=== PATIENT | female | born 1980 | race Caucasian/White ===

== ENCOUNTER 2016-09-05 21:41 | Emergency (ER) | payer OTHER ==
[~2016-09-05] VITALS: Ht 165.1 cm; Wt 78.9 kg
[~2016-09-05 21:41] MED LIST: FERR1TAB23; FRRS300 PO; MTR600X PO; PREN1TAB29 PO; TYL325X PO
[2016-09-05 21:44] VITALS: Ht 165.1 cm; Wt 78.9 kg
[2016-09-05] MEDS ORDERED: MULT-506 PO (22:47)
[2016-09-05] MEDS ORDERED: OYST500T47 PO (22:47)
[2016-09-05] MEDS ORDERED: XYLOCAINE 1%/SOD BICARB 20 ML VIAL INFIL ONE (23:00)
[2016-09-05 23:25] VITALS: BP 154/86; PULSE 79; TEMP 36.7; O2SAT 98
--- NOTE | 2016-09-07 03:10 | EMERGENCY ROOM VISIT NOTE ---
ED Visit Note First contact with patient: 22:47 Chief Complaint: Left index finger laceration. History of Present Illness: Ms. Mcintyre is a 35-year-old female who ambulates into the ED complaining of a laceration over the lateral aspect of the left index finger. Patient reports just prior to coming to the emergency department she was chopping meat and accidentally cut her index finger. She reports she control bleeding but did not wash the wound. Associated with her wound she reports she has a stinging pain over the area the laceration. She rates this discomfort 5/10. The pain is nonradiating. The pain worsens with palpation. She has not identified any alleviating factors related to the pain. She has not taken any medication for pain prior to arrival at the hospital. She denies any associated symptoms including weakness/ numbness/tingling of the fingers. Review of Systems: As noted above in history of present illness. Past Medical History: Patient denies. Current Medications: Multivitamins, calcium. Allergies to Medications: Patient denies. Social History: Patient feels safe in her home environment; she denies tobacco use. Tetanus Immunization Status: Patient was unsure but did not want a booster. Physical Examination: Vital Signs: Date Time Temp Pulse Resp B/P Pulse Ox O2 Delivery O2 Flow Rate FiO2 09/05/16 23:25 36.7 79 18 154/86 98 09/05/16 21:44 36.7 79 18 154/86 98 Room Air GENERAL: 35-year-old female in mild distress due to pain, nontoxic-appearing, afebrile and hemodynamically stable. NEUROLOGICAL: Awake, alert and oriented to person, place and time. Answering questions appropriately and following commands. SKIN: Warm, dry and pink. Left Index Finger: Over the lateral aspect of the index finger over the proximal phalange patient has a inverted U-shaped flap laceration that is full-thickness measuring approximately 2.3 cm. No active bleeding. LEFT INDEX FINGER: Please note description of soft tissue injury above under skin. No gross bony deformity. No tenderness over the MCP, PIP and DIP joints. Mild tenderness over her laceration. Full range of motion in flexion, extension of the MCP, PIP and DIP joint. Throughout the finger the skin was warm and pink and capillary refill is brisk. She was able to distinguish light sensations through all dermatomes. ED Course: Patient is assessed as noted above. Wound Repair: Complexity: Basic Verbal consent was obtained after the risks and benefits were explained. The skin was prepped with betadine and a sterile field set. Wound edges of the wound was anesthetized with 2.1 ml buffered 1% lidocaine. The wound was explored for foreign bodies and none found. Copious irrigation was performed using sterile saline. With direct pressure the bleeding subsided. Debridement was not performed. The wound edges were approximated using 5-0 Ethilon with 6 simple interrupted sutures. Hemostasis and excellent approximation was achieved. Antibacterial ointment and a sterile dressing applied. No complications and the patient tolerated the procedure well. Patient was educated about tonight's findings and instructed on her treatment plan; she verbalizes understanding and agreement with this plan. Clinical Impression: Laceration of the left index finger. Disposition: Patient discharged home in stable condition; prior to departure he was reassessed and subjectively reported she was pain-free. Plan: Comfort measures, wound care, and signs of infection were discussed with the patient. Patient was encouraged to follow-up with primary care provider or return to the ED for signs of infection and/or suture removal in 10-12 days.
== END 2016-09-05 23:25 | disposition home or self-care (01) ==
LOC: C.EDB 21:42 → C.EDD 23:25
DX: S61.211A Laceration without foreign body of left index finger without damage to nail, initial encounter (principal); W29.0XXA Contact with powered kitchen appliance, initial encounter; Y93.89 Activity, other specified

== ENCOUNTER 2024-03-16 05:49 | Observation (INO) ==
--- NOTE | 2024-02-14 15:04 | PAT Medication Instructions ---
Medication Instructions Date of Service February 14, 2024 Home Medications Medication Instructions Recorded meloxicam 7.5 mg tablet 7.5 - 15 mg (1 - 2 x 7.5 mg) PO 08/08/23 DAILY #30 tabs meloxicam 7.5 mg tablet 7.5 - 15 mg (1 - 2 x 7.5 mg) PO DAILY albuterol sulfate 90 mcg/actuation aerosol inhaler 2 puff inhalation QID PRN sob azelastine 137 mcg-fluticasone 50 mcg/spray nasal spray 1 spray intranasal BID PRN Congestion fluticasone propionate 110 mcg/actuation HFA aerosol inhaler 2 puff inhalation BID PRN sob fluticasone propionate 50 mcg/actuation nasal spray,suspension 1 spray intranasal DAILY PRN Allergy Symptoms magnesium oxide 400 mg PO DAILY multivitamin 1 tab PO QAM semaglutide (weight loss) 1 mg/0.5 mL subcutaneous pen injector (Wegovy) 1 mg subcut Q7D ASK your surgeon for instructions meloxicam 7.5 mg tablet 7.5 - 15 mg (1 - 2 x 7.5 mg) PO DAILY STOP 7 days prior to surgery semaglutide (weight loss) 1 mg/0.5 mL subcutaneous pen injector (Wegovy) 1 mg subcut Q7D DO NOT take the morning of surgery magnesium oxide 400 mg PO DAILY multivitamin 1 tab PO QAM Take morning of surgery With a small sip of water, OTHERWISE NOTHING TO EAT OR DRINK AFTER MIDNIGHT: albuterol sulfate 90 mcg/actuation aerosol inhaler 2 puff inhalation QID PRN sob (use if needed; please bring rescue inhaler with you to hospital day of surgery if possible) azelastine 137 mcg-fluticasone 50 mcg/spray nasal spray 1 spray intranasal BID PRN Congestion (if needed) fluticasone propionate 110 mcg/actuation HFA aerosol inhaler 2 puff inhalation BID PRN sob (if needed) fluticasone propionate 50 mcg/actuation nasal spray,suspension 1 spray intranasal DAILY PRN Allergy Symptoms (if needed) Take evening before surgery albuterol sulfate 90 mcg/actuation aerosol inhaler 2 puff inhalation QID PRN sob (if needed) azelastine 137 mcg-fluticasone 50 mcg/spray nasal spray 1 spray intranasal BID PRN Congestion (if needed) fluticasone propionate 110 mcg/actuation HFA aerosol inhaler 2 puff inhalation BID PRN sob (if needed) fluticasone propionate 50 mcg/actuation nasal spray,suspension 1 spray intranasal DAILY PRN Allergy Symptoms (if needed) Other Notes If you have any questions please call us at [phone] or [phone] or [phone] or [phone]
--- NOTE | 2024-02-25 10:59 | Anesthesiology Consultation ---
Date of Service February 25, 2024 Assessment & Plan (1) Encounter for pre-operative examination: - Check test AM DOS - Infectious disease screening: Per assessment on 02/25/24: No known recent infectious disease contacts or current infectious disease symptoms. - Wegovy instructions: Taking for weight loss. Patient informed by PAT to stop 7 days prior to surgery- voiced understanding. DOS 03/16/24. Advised last dose to be 03/09/24. Chart Review Chart Review: Acceptable Risk for Surgery and Patient seen in Pre Admission Testing Teaching & Discussion Pre-Anesthesia Teaching/Discussion Notes: Instructed NPO after midnight before surgery,except medications with 15 cc of water. Medication instructions provided according to the PAT guidelines. History Surgery Operation Date: 03/16/24 07:30 Proposed Procedures p L4-L5 Lateral Lumbar Interbody Fusion with Interbody Cage and Posterior Instrumentation, with Spinal Cord Monitoring - Moe Oejda MD Height/Weight Height: 5 ft 3 in Weight: 83.8 kg Allergies Allergy/AdvReac Type Severity Reaction Status Date / Time No Known Allergies Allergy Verified 02/12/24 13:55 Medications Home Medications Medication Instructions Recorded Confirmed Last Taken meloxicam 7.5 mg tablet 7.5 - 15 mg (1 - 2 x 7.5 mg) PO 08/08/23 02/12/24 Unknown DAILY #30 tabs albuterol sulfate 90 mcg/actuation 2 puff inhalation QID PRN sob 02/12/24 02/12/24 Unknown aerosol inhaler azelastine 137 mcg-fluticasone 50 1 spray intranasal BID PRN 02/12/24 02/12/24 Unknown mcg/spray nasal spray Congestion fluticasone propionate 110 2 puff inhalation BID PRN sob 02/12/24 02/12/24 Unknown mcg/actuation HFA aerosol inhaler fluticasone propionate 50 1 spray intranasal DAILY PRN 02/12/24 02/12/24 Unknown mcg/actuation nasal Allergy Symptoms spray,suspension magnesium oxide 400 mg PO DAILY 02/12/24 02/12/24 Unknown multivitamin 1 tab PO QAM 02/12/24 02/12/24 Unknown semaglutide (weight loss) 1 mg/0.5 1 mg subcut Q7D 02/12/24 02/12/24 Unknown mL subcutaneous pen injector (Wegovy) Past Medical History Medical History Asthma Excess skin Hx procedures to remove excess skin from arms and abdomen Hx of iron deficiency anemia Follows with [facility] hematology Hx iron infusions Hx of sleep apnea Does not use device (has not had retesting after weight loss) Obesity Taking Wegovy for weight loss Seasonal allergies Exercise / Class Metabolic Activity II 4-5 Yardwork/Stairs/Walk up hill Past Family History Family History Mother Diabetes Thyroid disorder Father Heart disease Past Surgical History Surgical History History of cholecystectomy Hx of myomectomy Hx of wisdom tooth extraction S/P gastric bypass sleeve gastrectomy 2015 Past Anesthesia History No Hx of Anesthesia Complications and No Family Hx of Anesthesia Complications History of PONV No Hx of PONV and No Hx of Motion Sickness Social History Smoking Status: Never smoker Do You Dip or Chew Tobacco: No Hx Alcohol Use: No Hx Substance Use: No substance use type: does not use Review of Systems Patient denies chest pain, shortness of breath, dyspnea on exertion, fever, chills, cough, wheezing. Physical Exam Vital Signs BP 105/74 P 67 TEMP 98.0 SP02 99%RA RESP 18 Physical Full cervical extension range of motion. Full TMJ range of motion. TMD > 3.5 finger breaths Mallampati Score I Dentition: intact, Right lower/upper side bridge, left lower bridge Lungs: clear throughout to auscultation Cardiac: regular rate and rhythm, no murmurs noted Spine: normal Extremities: no LE edema Lab Results Anesthesia Preop Results Results Anesthesia Widget: WBC 4.06 K/ul (4.8-10.8) L 02/25/24 Hgb 12.1 g/dl (12.0-16.0) 02/25/24 Hct 37.3 % (37.0-47.0) 02/25/24 Plt 138 K/uL (130-400) 02/25/24 Na 137 mmol/L (136-145) 02/25/24 K 4.4 mmol/L (3.5-5.1) 02/25/24 Cl 103 mmol/L (98-107) 02/25/24 CO2 30 mmol/L (21-32) 02/25/24 BUN 11 mg/dl (6-23) 02/25/24 Creat 0.53 mg/dl (0.6-1.2) L 02/25/24 Glucose Level 84 mg/dl (70-99(Fasting)) 02/25/24 PT 10.8 Seconds (9.0-12.0) 02/25/24 PTT 26 Seconds (21-31) 02/25/24 INR 1.0 (0.9-1.1) 02/25/24 Blood Type A Positive 02/25/24 Antibody Screen NEGATIVE 02/25/24 Testing Electrocardiogram Date: 02/25/24 NSR with sinus arrhythmia at 61bpm. "Normal ECG" Chest X-Ray Date: 02/25/24 FINDINGS: Lung volumes are normal. Lungs are clear. There is no pneumothorax or pleural effusion. Cardiac size is normal. Mediastinal contours are normal. There is no evidence for pulmonary edema. IMPRESSION: No acute cardiopulmonary findings.
--- OUTSIDE RECORDS SUMMARY | 2024-03-16 05:53 | External Medical Summary | Summary of Care ---
Author Name Unknown Organization [facility] Address [address] [place] [address] Phone [phone] Care Team Providers Care Secretary Specialist Name Role Phone Jodi Bowles Fátima MENA Primary Care Provider Reason for Visit * Reason Onset Date Comments Allergy Injection 03/02/2024 Encounter Details Date Type Department Care Team ([facility] st Contact Info) Description 03/02/2024 9:00 AM EDT Immunization/I njection Allergy/Immunology [facility] [address] [place] [address] Nadja, Nurse Allergy [facility] [address] [place] [address] Allergic rhinitis due to animal hair and dander* Allergies No known active allergiesdocumented as of this encounter (statuses as of 03/02/2024) Medications Medication Sig Dispensed Refills Start Date End Date Status [facility] Support THERAPY PACK Oral Take by mouth. Act kalina Omeprazole 40 MG Oral Capsule Delayed Release (PriLOSEC) Take 1 Capsule by mouth in the morning. 90 Capsule 3 12/18/2022 Active Albuterol Sulfate 108 (90 Base) MCG/ACT Inhalation Aerosol Powder Breath Activated Use 2 puff every 4-6 hours as needed for wheezing, shortness of breath, or cough 1 Each 6 02/26/2023 Active Fluticasone Propionate HFA 110 MCG/ACT Inhalation Aerosol (Flovent HFA) Inhale 2 Puffs by mouth in the morning and 2 Puffs before bedtime. 12 g 6 02/26/2023 Active Levocetirizine Dihydrochloride 5 MG Oral Tablet (Xyzal Allergy 24HR) Take 1 Tablet by mouth every evening. 90 Tablet 4 02/26/2023 Active Fluticasone Propionate 50 MCG/ACT Nasal Suspension (Flonase) Administer 2 Sprays into each nostril in the morning. 16 g 3 02/26/2023 Active Azelastine HCl 0.05 % Ophthalmic Solution (Optivar) Instill 1 Drop into both eyes in the morning and 1 Drop before bedtime. 18 mL 3 03/04/2023 Active Wegovy 0.5 MG/0.5ML Subcutaneous Solution Auto-injector (Semaglutide-Weight Management) Inject 0.5 mg under the skin once a week. 2 mL 1 09/12/2023 Active Additional Information Patient not taking.Reported on 02/03/2024 traZODone HCl 50 MG Oral Tablet (Desyrel) Take 0.5 Tablets by mouth at bedtime. 90 Tablet 3 01/29/2024 Active Wegovy 1 MG/0.5ML Subcutaneous Solution Auto-injector (Semaglutide-Weight Management) Inject 1 mg under the skin once a week for 28 days. 2 mL 2 02/03/2024 Active Hospital, Clinic, or Other Facility Administered Medication Ordered Dose Route Frequency Start Date End Date Status vitamin b-12 (Cyanocobalamin) inj 1,000 mcgIndications:Intestinal postoperative nonabsorption 1000 mcg IM [id number] 11/12/2022 09/15/19 25 Active vitamin b-12 (Cyanocobalamin) inj 1,000 mcgIndications:Intestinal postoperative nonabsorption 1000 mcg IM [id number] 10/29/2023 01/22/20 25 Active documented as of this encounter (statuses as of 03/02/2024) Active Problems Problem Noted Date Diagnosed Date DDD (degenerative disc disease), lumbar 10/29/19 24 Fatigue 10/29/2023 Motion sickness 07/31/2023 Recurrent headache 07/31/2023 Postsurgical malabsorption, 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 Wishes to work on weight loss. [facility] OTHER*[id number] 12/15/2014 GERD (gastroesophageal reflux disease) 5 Allergic rhinitis 07/01/2014 Synovial cyst of lumbar spine 04/09/2013 Overview: 04/07/13 MRI [facility] lumbar- scanned 1. Broad based L4-5 disc herniation with mild central canal narrowing, also mild-mod b/l forminal narrowing. 2. [id number] likely synovial cyst L4-5 displacing/compressing the right L4-5 nerve root. 3. No fractures. documented as of this encounter (statuses as of 03/02/2024) Resolved Problems Problem Noted Date Diagnosed Date Resolved Date Gallstones 07/07/2018 09/26/2018 Positive GBS test 04/29/2018 07/07/2018 Overview: At 36 weeks Positive GBS test 03/04/2018 07/07/2018 Overview: Vaginal cx at hospital admission was + for GBS Antepartum multigravida of a dvanced maternal age 0510/08/2017 07/07/2018 Obesity, Class I, BMI 30.0-3 4.9 (see actual BMI) 10/08/2017 05/21/2018 Overview: Class 1-BMI 30-34.9: Early 50 gm glucose Nutrition consult Only if GDMA1 or LGA:NST 2x/wk starting at 32 wks and deliver by JEWEL Encounter for supervision of other normal , unspecified trimester 09/26/2017 019 Overview: Problem Action Taken Date entered Entered by Date resolved Current needs or questions Patient denies having any current needs or questions 11/05/2017 Lesvia Kaba RN 11/05/17 Problem Action Taken Date entered Entered by Date resolved Current needs or questions Patient denies having any current needs or questions 12/03/2017 Erica Saez RN 12/03/2017 Problem Action Taken Date entered Entered by Date resolved Current needs or questions Patient denies having any current needs or questions 01/01/2018 Noy Araiza RN 01/01/2018 Problem Action Taken Date entered Entered by Date resolved Current needs or questions Patient denies having any current needs or questions 03/04/2018 Erica Saez RN 03/04/2018 Problem Action Taken Date entered Entered by Date resolved Current needs or questions Patient denies having any current needs or questions 04/01/2018 Erica Saez RN 04/01/2018 Problem Action Taken Date entered Entered by Date resolved Current needs or questions Patient denies having any current needs or questions 04/17/2018 Erica Saez RN 04/17/2018 Problem Action Taken Date entered Entered by Date resolved Current needs or questions Patient denies having any current needs or questions 04/23/2018 Mackenzie Kovacs RN 04/23/18 Problem Action Taken Date entered Entered by Date resolved Current needs or questions Patient denies having any current needs or questions 04/29/2018 Erica Saez RN 04/29/2018 Problem Action Taken Date entered Entered by Date resolved Current needs or questions Patient denies having any current needs or questions 05/14/2018 Erica Saez RN 05/14/2018 Morbid obesity with BMI of 40.0-44.9, adult 08/30/2015 10/08/2017 Allergic conjunctivitis 01/27/2015 05/0 06/2017 Cough 01/27/2015 10/08/2017 Morbid obesity, BMI not known 07/01/2014 10/08/2017 MDD (major depressive disorder) 07/01/2014 07/31/2023 Abnormal findings on screening 05/26/2013 11/12/2013 Overview: Elevated risk of down syndrome, 1 in 200 [id number] testing done, showing normal chromosome representation Encounter for supervision of other normal 03/26/2013 11/12/2013 Overview: 10/09/2013 Tdap Vaccine administered per clinic protocol. Pt given VIS(vaccine information sheet) Erica Saez RN ICD-10 update of inactive term Routine general medical exam ination at a [facility] care facility 07/06/2011 10/08/2017 Overview: [place] refugee. Friend-Jinny Arias 07/22 pap WNL no transformation zone. Prior: Never had EKG MANAGER exam, delivered at home. Morbid obesity 07/06/2011 11/12/2013 Overview: Early glucola ordered-- Elevated (140). 3hr GTT ordered--WNL 06/01/13 (18wks) MFM: Follow up ultrasound is recommended in 6 weeks for growth secondary to class III obesity. Contraception management 07/06/201106/2017 Skin tag 07/06/2011 10/08/2017 Positive tuberculin test 07/06/201108/2019 Overview: completed INH x9mos on 11/14/11-08/22/12 RAOUL+ X-ray WNL 03/28/11 documented as of this encounter (statuses as of 03/02/2024) Immunizations Name Administration Dates Next Due COVID-19 mRNA, LNP-s, No Pre serve, 2-Dose Series (Moderna) 08/09/2020 COVID-19 mRNA, LNP-s, No Pre serve, 2-Dose Series (Pfizer) 06/07/2021 HepA Inact/HepB Recomb>=18yrs old 12/25/2011,08/2011,03/26/2011 MMR - Measles/Mumps/Rubella Vaccine 06/12/2011,1 Pneumococcal Polysaccharide PPV23 (Pneumovax) 05/12/2020 Seasonal Influenza Vac, Quad , Cell Cult, PF, 6 Mos and Up, IM, (Flucelvax Quad) 03/11/2023 Seasonal Influenza Virus Vac cine, Unspecified Formulation 02/19/2013,04/02/2012,03/26/2011 Seasonal Influenza, PF, 6 M & above, IM , (FluLaval or Fluzone) 03/03/2021,02/22/2020,04/13/2019,02/08 Seasonal Influenza, Quadriva lent, No Preserve, IM 04/06/2016,03/03/2015 03/03/2016 Seasonal Influenza, Trivalen t, (IIV3), PF, (Fluzone) 02/26/2024 Seasonal Influenza, Trivalen t, (IIV3), with Preserv, (Fluzone) 02/19/2013 TD - Tetanus/Diptheria (ADULT) 12/25/2011,2011 TDAP (age 10 and older)(Boostrix) 04/23/2018,07/2013,03/26/2011 Varicella Vaccine (Chicken Pox) 06/12/2011,03/26 documented as of this encounter Social History Tobacco Use Types Packs/Day Years Used Date Smoking Tobacco: Never Smokeless Tobacco: Never Comments:no passive smoke Alcohol Use Standard Drinks/Week Comments No 0 (1 standard drink = 0.6 oz pur e alcohol) denies PHQ-2 Answer Date Recorded PHQ-2 Score 10 05/12/2020 Hunger Vital Sign Answer Date Recorded Within the past 12 months, y ou worried that your food would run out before you got the money to buy more. Never true 05/12/20 20 Within the past 12 months, t he food you bought just didn't last and you didn't have money to get more. Never true 05/12/2020 Utilities Answer Date Recorded Do you have trouble paying y our heating, water, or electric bill? (Adult - for ages 18 years and over) Not on file 11/26/2023 Is your family able to pay t he heat, water, or electric bill? (Household - for ages 0-17 years) Not on file 11/26/2023 Does your family have access to good internet? (Household - for ages 0-17 years) Not on file 11/26/2023 Social Connections Answer Date Recorded How often do you feel lonely or isolated from those around you? (Adult - for ages 18 years and over) Not on file 11/26/2023 Sex and Gender Information Value Date Recorded Sex Assigned at Not on file Gender Identity Not on file Sexual Orientation Not on file Job Start Date Occupation Industry Not on file Not on file Not on file documented as of this encounter Functional Status Functional Status Response Date of Assess ment Are you deaf or do you have serious difficulty h earing? No 08/18/2015 Are you blind or do you have serious difficulty seeing, even when wearing glasses? No 08/18/2015 Cognitive Status Response Date of Assessm ent Because of a physical, menta l, or emotional condition, do you have serious difficulty concentrating, remembering, or making decisions? (5 years old or older) No 08/18/2015 documented as of this encounter Progress Notes * Tootie Eller LPN - 03/02/2024 9:17 AM EDT Pre-injection Questionnaire Patient identified by stating name and birthdate: Yes 1. Antihistamines taken prior to injection? yes (If no, may offer the patient Benadryl at 0.5mg/kg rounded to nearest 12.5mg) 2. Have you had increased asthma symptoms (chest tightness, wheezing, coughing, shortness of breath) in the past week? No 3. Have you had allergy symptoms,a cold, respiratory tract infection,fever or flu-like symptoms in the past week? No 4. Did you have any increased allergy or asthma symptoms, hives, generalized itching within 12 hours of receiving your last injection or swelling that persisted in the next day? No 5. Are you on any new medications or eye drops? No 6. Are you or have been diagnosed with a new medical condition? No Today's peak flow - There were no vitals taken for this visit. *Allergy Injection documentation located in Allergy Injections CPSL Flowsheet* documented in this encounter Plan of Treatment Upcoming Encounters Date Type Department Care Team (Late st Contact Info) Description 03/09/2024 9:00 AM EDT [facility] [address] [place] [address] Zoe Thomas PA-C [address] [place] [address] 03/10/2024 9:00 AM EDT Immunization/Injecti on Allergy/Immunology [facility] Alex Saez [address] [place] [address] Nadja Nurse Allergy [facility] [address] [place] [address] 05/11/2024 9:30 AM EST Laboratory Laboratory [facility] [address] [place] [phone] Nadja Lab [facility] [address] [place] [address] 05/18/2024 4:00 PM EST Office Visit Hematology/Oncology [facility] [place] [address] [place] [phone] Claudia Sandoval MD [address] [place] [address] 05/28/2024 9:15 AM EST Nurse Only Nutrition & Weight Management, [facility] [address] [facility] [address] [address] [facility] Nurse Gi Nutrition [facility] [address] [place] [address] 07/31/2024 10:00 AM EST Office Visit [facility] [address] [address] [place] [address] Jodi Bowles CRNP [address] [facility] [address] [place] [address] Health Maintenance Due Date Last Done Comments HPV/Co-Test 2012 Depression Monitoring 05/12/2021 05/12/2020 Pneumococcal Vaccine: Pediatrics (0 to 5 Years) and At-Risk Patients (6 to 64 Years) (2 of 2 - PCV) 05/12/2021 05/12/2020 COVID-19 Vaccine ( - 2023- season) 2024 06/07/2021, 08/09/2020 Mammogram 08/11/2024 08/12/2023, 08/12/2023 Cervical Cancer Screening 12/06/2024 Pap Smear 12/06/2024 12/06/2021, 06/11, 05/14/2017, Additional history exists Diabetes Screening 11/05/2026 11/06/2023, 1 07/15/2022, 10/03/2022, Additional history exists Lipid Panel 03/29/2027 03/29/2022, 06/10, 08/13/2019, Additional history exists DTap/Tdap Vaccines (6 - Td or Tdap) 04/23/2028 04/23/2018, 10/09/2013, 12/25/2011, Additional history exists Hepatitis B Vaccine Completed 12/25/2011, 06/12/2011, 03/26/2011 Influenza Vaccine (FLU shot) Completed , 03/11/2023, 03/03/2021, Additional history exists HPV (Gardasil) Vaccine Aged Out No lo nger eligible based on patient's age to complete this topic MENINGOCOCCAL (MENACTRA/MENVEO) Aged Out No longer eligible based on patient's age to complete this topic documented as of this encounter Medical Devices Not on filedocumented as of this encounter Visit Diagnoses Diagnosis Allergic rhinitis due to animal hair and dander- Primary Allergic rhinitis due to animal (cat) (dog) hair and dander documented in this encounter Advance Directives * Full Code (Latest Code Status on File) Date Activated Date Inactivated Comments 09/28/2021 4:27 PM 09/28/2021 10:07 PM This order reflects the patients wishes and were consensually agreed upon. Question Answer Comments Discussion of Advance Directives occurred with: Not Discussed * Full Code Date Activated Date Inactivated Comments 07/21/2018 9:27 AM 07/21/2018 5:06 PM This order r eflects the patients wishes and were consensually agreed upon. * Full Code Date Activated Date Inactivated Comments 07/21/2018 9:25 AM 07/21/2018 9:27 AM This order r eflects the patients wishes and were consensually agreed upon. * Full Code Date Activated Date Inactivated Comments 08/18/2015 10:21 AM 08/19/2015 3:51 PM This order reflects the patients wishes and were consensually agreed upon. * Full Code Date Activated Date Inactivated Comments 08/18/2015 6:24 AM 08/18/2015 10:21 AM This order reflects the patients wishes and were consensually agreed upon. Care Teams Secretary Specialist Relationship Specialty Start Date End Date Rhed, Jodi Fátima, CLIENT SERVER DEVELOPER [address] [address] PCP - General Nurse Practitioner 06/18/23 documented as of this encounter
--- OUTSIDE RECORDS SUMMARY | 2024-03-16 05:53 | External Medical Summary | Summary of Care ---
Author Name Unknown Organization [facility] Address [address] [place] [address] Phone [phone] Care Team Providers Care Stogy Roller Name Role Phone Luis FernandomarkJodi Fátima MENA Primary Care Provider Reason for Visit * Reason Onset Date Comments Allergy Return Allergy Injection 02/27/2024 Encounter Details Date Type Department Care Team (Latest Contact Info) Description 02/27/2024 9:30 AM EDT [facility] [address] [facility] [place] [address] Zoe Thomas PA-C [address] [place] [address] Allergic rhinitis due to pollen, unspecified seasonality*; Allergic rhinitis due to animal hair and dander; Allergic rhinitis due to dust mite; Allergic conjunctivitis of both eyes; Mild persistent asthma without complication Allergies No known active allergiesdocumented as of this encounter (statuses as of 02/28/2024) Medications Medication Sig Dispensed Refills Start Date End Date Status [facility] Support THERAPY PACK Oral Take by [...] 1,000 mcgIndications:Intestinal postoperative nonabsorption 1000 mcg IM [id number] 11/12/2022 09/15/19 25 Active vitamin b-12 (Cyanocobalamin) inj 1,000 mcgIndications:Intestinal postoperative nonabsorption 1000 mcg IM [id number] 10/29/2023 01/22/20 25 Active documented as of this encounter (statuses as of 02/28/2024) Active Problems Problem Noted Date Diagnosed Date [...] to work on weight loss. [facility] OTHER*[id number] 12/15/2014 GERD (gastroesophageal reflux disease) 5 Allergic rhinitis 07/01/2014 Synovial cyst of lumbar spine 04/09/2013 Overview: 04/07/13 MRI [facility] lumbar- scanned 1. Broad based L4-5 disc herniation with mild central canal narrowing, also mild-mod b/l forminal narrowing. 2. [id number] likely synovial cyst L4-5 displacing/compressing the right L4-5 nerve root. 3. No fractures. documented as of this encounter (statuses as of 02/28/2024) Resolved Problems Problem Noted Date Diagnosed Date [...] any current needs or questions 11/05/2017 Lesvia Kaba, RN 11/05/17 Problem Action Taken Date entered [...] risk of down syndrome, 1 in 200 [id number] testing done, showing normal chromosome representation Encounter for supervision of other normal 03/26/2013 11/12/2013 Overview: 10/09/2013 Tdap Vaccine administered per clinic protocol. Pt given VIS(vaccine information sheet) Erica Saez RN ICD-10 update of inactive term Routine general medical exam ination at a health care facility 07/06/2011 10/08/2017 Overview: [place] refugee. Friend-Jinny Arias 07/22 pap WNL no transformation zone. Prior: Never had MEDICATION NURSE exam, delivered at home. Morbid obesity 07/06/2011 [...] as of this encounter (statuses as of 02/28/2024) Immunizations Name Administration Dates Next Due COVID-19 [...] on file documented as of this encounter Last Filed Vital Signs Vital Sign Reading Time Taken Comments Blood Pressure 110/74 02/27/2024 9:08 AM EDT Pulse 76 02/27/2024 9:08 AM EDT Temperature 36 C (96.8 F) 02/27/2024 9:08 AM EDT Respiratory Rate 16 02/27/2024 9:08 AM EDT Oxygen Saturation - - Inhaled Oxygen Concentration - - Weight 82.3 kg (181 lb 8 oz) 02/27/2024 9:08 AM EDT Height - - Body Mass Index 32.15 01/29/2024 11:03 AM EDT documented in this encounter Functional Status Functional Status Response [...] Progress Notes * Tootie Eller LPN - 02/27/2024 9:31 AM EDT Pre-injection Questionnaire Patient identified by [...] medical condition? No Today's peak flow - BP 110/74 | Pulse 76 | Temp 36 C (96.8 F) | Resp 16 | Wt 82.3 kg (181 lb 8 oz) | BMI 32.15 kg/m | BSA 1.91 m *Allergy Injection documentation located in Allergy Injections CPSL Flowsheet* * Zoe Thomas PA-C - 02/27/2024 9:11 AM EDT SUBJECTIVE: Salvador is a pleasant 43 year old female who presents for followup of her allergic rhinitis, allergicconjunctivitis and mild persistent asthma. Over the spring and summer this year she had a lot of nasal congestion and itchy/teary eyes. She was taking Zyrtec, Flonase, and using the azelastine eye drops without much relief of symptoms. She would be sitting outside and start to have symptoms and then go indoors and symptoms would persist or worsen throughout the day. She also required her albuterol inhaler around this time. She does continue on allergen immunotherapy for dust mites, cat, and dog dander sensitivities. She's tolerating the shots without adverse reaction. She's unsure if they've been helpful, especially since she had more symptoms in the spring and summer. Her asthma is controlled with Flovent 110 mcg 2 puffs twice a day. She also uses an albuterol rescue inhaler as needed every 4-6 hours for shortness of breath, wheezing, cough. She uses her rescue inhaler on average 1-2 times per week. She denies any nocturnal symptoms. Triggers are her allergies. Denies any upper respiratory infections, sinus infections, ear infections. No recent ED or urgent care visits. No hospitalizations from an asthma standpoint. No recent oral antibiotics or oral steroids. She did start allergy immunotherapy on August 24, 2019. She complained of some itchy throat with the green bottle so the next time she was given a lower dose out of the silver bottle which she tolerated. She is now on her maintenance dose and denies any ongoing reactions. Asthma Control Test Summary, Results are Patient Reported The overall score is: 24 suggesting: Well Controlled asthma for the survey taken on: 11/09/2019 9:37:51 AM. Asthma Control Test Summary, Results are Patient Reported The overall score is: 16 suggesting: Moderately Controlled asthma for the survey taken on: 07/29/2019 2:47:14 PM. Asthma Control Test Summary, Results are Patient Reported The overall score is: 19 suggesting: Moderately Controlled asthma for the survey taken on: :05:55 PM. Immunotherapy: Started: 08/24/19-08/31/19 (COVID) - restarted 11/2019 Benefit? N/A Reactions? Itchy throat with first injection, dose reduced and tolerate lower dose, no further reactions. Patient Active Problem List Diagnosis Synovial cyst of lumbar spine GERD (gastroesophageal reflux disease) Allergic rhinitis [facility] OTHER*[id number] Mild obstructive sleep apnea S/P laparoscopic sleeve gastrectomy Iron deficiency anemia Mild persistent asthma without complication Adjustment disorder with mixed anxiety and depressed mood Other iron deficiency anemias Postsurgical malabsorption, not elsewhere classified Chronic endometritis Motion sickness Recurrent headache DDD (degenerative disc disease), lumbar Fatigue Current Outpatient Medications Medication Sig Dispense Refill Women Health Support THERAPY PACK Oral Take by mouth. Omeprazole 40 MG Oral Capsule Delayed Release (PriLOSEC) Take 1 Capsule by mouth in the morning. 90Capsule 3 Albuterol Sulfate 108 (90 Base) MCG/ACT Inhalation Aerosol Powder Breath Activated Use 2 puff every4-6 hours as needed for wheezing, shortness of breath, or cough 1 Each 6 Levocetirizine Dihydrochloride 5 MG Oral Tablet (Xyzal Allergy 24HR) Take 1 Tablet by mouth every evening. 90 Tablet 4 Fluticasone Propionate 50 MCG/ACT Nasal Suspension (Flonase) Administer 2 Sprays into each nostril in the morning. 16 g 3 Azelastine HCl 0.05 % Ophthalmic Solution (Optivar) Instill 1 Drop into both eyes in the morning and 1 Drop before bedtime. 18 mL 3 traZODone HCl 50 MG Oral Tablet (Desyrel) Take 0.5 Tablets by mouth at bedtime. 90 Tablet 3 Wegovy 1 MG/0.5ML Subcutaneous Solution Auto-injector (Semaglutide-Weight Management) Inject 1 mg under the skin once a week for 28 days. 2 mL 2 Fluticasone Propionate HFA 110 MCG/ACT Inhalation Aerosol (Flovent HFA) Inhale 2 Puffs by mouth in the morning and 2 Puffs before bedtime. 12 g 6 Wegovy 0.5 MG/0.5ML Subcutaneous Solution Auto-injector (Semaglutide-Weight Management) Inject 0.5 mg under the skin once a week. 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 No basement. Electric heat and central air conditioning. No pets. Bedroom 2nd floor carpeted. Sleeps on a mattress/spring with 2 synthetic pillows. Currently she is not working outside the home. BP 110/74 | Pulse 76 | Temp 36 C (96.8 F) | Resp 16 | Wt 82.3 kg (181 lb 8 oz) | BMI 32.15 kg/m | BSA 1.91 m PHYSICAL EXAM: GENERAL: No acute distress. EYES: Conjunctiva- normal; Eyelids - normal EARS: TM's - clear NOSE:Pale mucosa; Mild Inferior and Middle turbinate edema; no nasal polyps or mucopus; Septum - normal OROPHARYNX: Teeth and gums - normal; Mild erythema, cobblestoning; No lesions, exudates NECK: Supple; No thyroid enlargment or cervical adenopathy RESPIRATORY: Clear to A and P; No wheezes; Decreased breath sounds bilaterally; No intercostal retractions or accessory muscle use CARDIOVASCULAR: RRR; No gallops, rubs, clicks, or murmurs. LYMPHATIC: No significant adenopathy noted SKIN: no atopic dermatitis; no urticaria or angioedema Normal skin quality OBJECTIVE DATA: Spirometry performed on May 01, 2019 revealed normal spirometry. FEV1/FVC was 84%. FEV1 was 3.00, 99% of predicted. FVC was 3.58, 99% of predicted. Allergy skin testing 01/27/15 revealed significant positive reactions to dust mites, cat and dog. Spirometry 01/27/15 revealed a slightly reduced FEV1/FVC ratio of 80%. FEV1 2.67 L, 86% of predictedfindings consistent with mild obstructive airways disease, 12% improvement in FEV1 post beta 2 agonist bronchodilator. ASSESSMENT: ICD-10-CM 1. Allergic rhinitis due to pollen, unspecified seasonality J30.1 2. Allergic rhinitis due to animal hair and dander J30.81 3. Allergic rhinitis due to dust mite J30.89 4. Allergic conjunctivitis of both eyes H10.13 5. Mild persistent asthma without complication J45.30 PLAN: Avoidance measures regarding dust mites and animal dander were again recommended. Pollen avoidance measures were also discussed at length and informational materials were provided. She's having more symptoms in the spring and summer. Allergy testing in the past didn't show sensitizations to pollen.We will have her hold the Xyzal for 5 days, and follow up in the office for updated testing. She sill continue Flonase 2 sprays in each nostril once daily, she can increase to twice daily as needed. She will continue azelastine eyedrops 0.5% 1 drop in each eye twice daily. If she has worsening symptoms a nasal antihistamine such as Astelin could be added. She finds allergy immunotherapy somewhat helpful this continues to have symptoms. She denies any ongoing reactions to the allergy shots. She does continue to take an oral antihistamine prior to the shot. She does not require ice packs or Benadryl. She is doing well on the allergy immunotherapy and a full 5 year course is anticipated. She will continue Flovent 110 mcg, 2 puffs twice daily. She will also continue albuterol 2 puffs every 4 hours as needed for cough, wheeze, chest tightness or shortness of breath. If these are not enough to control her symptoms acutely than she should be seen. Zoe Thomas PA-C Allergy and Immunology [facility] Supervising Physician: Ja Granger MD Type of Supervision: Direct I spent a total of 30-39 minutes (exact time 30 mins) on the date of service in preparation, delivery, and documentation of the care provided to Salvador Mcintyre excluding any time spent in the performance of separately billed services. (This note was completed using the dictation program Fluency Direct. As such, there may be misspellings, word substitutions, or other variations that should not change the essence of the clinical content of this encounter note.If there is need for further clarification, please direct questions to the provider listed above.) PCP: ABDON SEYMOUR [address] [place] [address] [phone] documented in this encounter Nursing Notes * Tootie Eller LPN - 02/27/2024 9:08 AM EDT The pt has been properly identified by confirmation of name and date of . Pt presents for allergy return. Pt states she doesn't feel like the shots help she has bad allergies in October/November, eyes and face itch. documented in this encounter Plan of Treatment Upcoming Encounters Date Type Department Care Team (Late st Contact Info) Description 03/02/2024 9:00 AM EDT Immunization/Injecti on Allergy/Immunology [facility] [place] [address] [place] [address] [place], Nurse Allergy [facility] [address] [place] [address] [address] 05/11/2024 9:30 AM EST Laboratory Laboratory [facility] [place] [address] [place] [phone] [place], Lab [facility] [address] [place] [address] 05/18/2024 4:00 PM EST Office Visit Hematology/Oncology [facility] [place] [address] [place] [id number] Claudia Sandoval MD [address] [place] [address] 05/28/2024 9:15 AM EST Nurse Only Nutrition & Weight Management, [facility] [address] [address] MarshallNurse Bessie gonzalez Von [address] [place] [address] 07/31/2024 10:00 AM EST Office Visit Family [facility] [address] [place] [address] Jodi Bowles CRNP [address] [place] [address] Health Maintenance Due Date Last Done Comments HPV/Co-Test 2012 Depression Monitoring 05/12/2021 05/12/2020 Pneumococcal Vaccine: Pediatrics (0 to 5 Years) and At-Risk Patients (6 to 64 Years) (2 of 2 - PCV) 05/12/2021 05/12/2020 COVID-19 Vaccine ( season) 2024 06/07/2021, 08/09/2020 Mammogram 08/11/2024 08/12/2023, [...] Visit Diagnoses Diagnosis Allergic rhinitis due to pollen, unspecified seasonality- Primary Allergic rhinitis due to animal hair and dander Allergic rhinitis due to animal (cat) (dog) hair and dander Allergic rhinitis due to dust mite Allergic conjunctivitis of both eyes Other chronic allergic conjunctivitis Mild persistent asthma without complication Unspecified asthma documented in this encounter Advance Directives * [...] and were consensually agreed upon. Care Teams Stogy Roller Relationship Specialty Start Date End Date Jodi Bowles CRNP [address] [place] [address] PCP - General Nurse Practitioner 06/18/23 documented as of this encounter"
--- OUTSIDE RECORDS SUMMARY | 2024-03-16 05:53 | External Medical Summary | Summary of Care ---
Author Name Unknown Organization [facility] Address [address] [place] [address] Phone [phone] Care Team Providers Care Bulk Plant Manager Name Role Phone Jodi Bowles Fátima MENA Primary Care Provider Reason for Visit * Reason Onset Date Comments Appointment 03/09/2024 Encounter Details Date Type Department Care Team ([facility] Contact Info) Description 03/09/2024 Telephone Allergy/Immunology [facility] [address] [place] [address] Ja Granger MD [address] [place] [address] Appointment Allergies No known active allergiesdocumented as of this encounter (statuses as of 03/09/2024) Medications Medication Sig Dispensed Refills Start Date End Date Status [facility] Support THERAPY PACK Oral Take by mouth. [...] at bedtime. 90 Tablet 3 01/29/2024 Active Hospital, Clinic, or Other Facility Administered Medication Ordered Dose Route Frequency Start Date End Date Status vitamin b-12 (Cyanocobalamin) inj 1,000 mcgIndications:Intestinal postoperative nonabsorption 1000 mcg IM [id number] 11/12/2022 09/15/19 25 Active vitamin b-12 (Cyanocobalamin) inj 1,000 mcgIndications:Intestinal postoperative nonabsorption 1000 mcg IM [id number] 10/29/2023 01/22/20 25 Active documented as of this encounter (statuses as of 03/09/2024) Active Problems Problem Noted Date Diagnosed Date [...] to work on weight loss. [facility] OTHER*[id number] 12/15/2014 GERD (gastroesophageal reflux disease) 5 Allergic rhinitis 07/01/2014 Synovial cyst of lumbar spine 04/09/2013 Overview: 04/07/13 MRI [facility] lumbar- scanned 1. Broad based L4-5 disc herniation with mild central canal narrowing, also mild-mod b/l forminal narrowing. 2. [id number] likely synovial cyst L4-5 displacing/compressing the right L4-5 nerve root. 3. No fractures. documented as of this encounter (statuses as of 03/09/2024) Resolved Problems Problem Noted Date Diagnosed Date [...] any current needs or questions 12/03/2017 Erica Saez, RN 12/03/2017 Problem Action Taken Date entered Entered by Date resolved Current needs or questions Patient denies having any current needs or questions 01/01/2018 Noy Araiza, RN 01/01/2018 Problem Action Taken Date entered [...] risk of down syndrome, 1 in 200 [id number] testing done, showing normal chromosome representation Encounter for supervision of other normal 03/26/2013 11/12/2013 Overview: 10/09/2013 Tdap Vaccine administered per clinic protocol. Pt given VIS(vaccine information sheet) Erica Saez RN ICD-10 update of inactive term Routine general medical exam ination at a health care facility 07/06/2011 10/08/2017 Overview: [place] refugee. Friend-Jinny Hugo 07/22 pap WNL no transformation zone. Prior: Never had CORRUGATOR HELPER exam, delivered at home. Morbid obesity 07/06/2011 [...] as of this encounter (statuses as of 03/09/2024) Immunizations Name Administration Dates Next Due COVID-19 [...] No 08/18/2015 documented as of this encounter Plan of Treatment Upcoming Encounters Date Type Department Care Team (Late st Contact Info) Description 03/26/2024 1:30 PM EDT Office Visit Allergy/Immunology [facility] [address] [place], [place] [address] Ja Granger MD [address] [place] [address] 05/11/2024 9:30 AM EST Laboratory Laboratory [facility] [address] [place] [phone] [facility] [address] [facility] [place] [address] 05/18/2024 4:00 PM EST Office Visit Hematology/Oncology [facility] [address] [place] [phone] Claudia Sandoval MD [address] [facility] [place] [address] 05/28/2024 9:15 AM EST Nurse Only Nutrition & Weight Management, [facility] [place] [address] [facility], Nurse Gi Nutrition [facility] [address] [facility] [place] [address] 07/31/2024 10:00 AM EST Office Visit Family Practice [facility] [address] [place] [address] Jodi Bowles CRNP [address] [facility] [place] [address] Health Maintenance Due Date Last Done Comments HPV/Co-Test 2012 Depression Monitoring 05/12/2021 05/12/2020 Pneumococcal Vaccine: Pediatrics (0 to 5 Years) and At-Risk Patients (6 to 64 Years) (2 of 2 - PCV) 05/12/2021 05/12/2020 COVID-19 Vaccine ( - season) 2024 06/07/2021, 08/09/2020 Mammogram 08/11/2024 08/12/2023, [...] Not on filedocumented as of this encounter Advance Directives * Full Code [...] and were consensually agreed upon. Care Teams Bulk Plant Manager Relationship Specialty Start Date End Date Jodi Bowles CRNP [address] [place] [address] PCP - General Nurse Practitioner 06/18/23 documented as of this encounter
--- OUTSIDE RECORDS SUMMARY | 2024-03-16 05:54 | External Medical Summary | Summary of Care ---
Author Name Unknown Organization [facility] Address [address] [place] [address] Phone [phone] Care Team Providers Care Tools Developer Name Role Phone Luis FernandomarkKarensa Fátima MENA Primary Care Provider Reason for Visit * Reason Onset Date Comments Appointment 02/26/2024 Encounter Details Date Type Department Care Team ([facility] Contact Info) Description 02/26/2024 Telephone Nutrition & Weight Management, [place] [address] [place] [address] Perry Cole, DO [address] [place] [address] Appointment Allergies No known active allergiesdocumented as of this encounter (statuses as of 02/26/2024) Medications Medication Sig Dispensed Refills Start Date End Date Status [facility] Support THERAPY PACK Oral Take by mouth. [...] 1,000 mcgIndications:Intestinal postoperative nonabsorption 1000 mcg IM [id number] 11/12/2022 09/15/19 25 Active vitamin b-12 (Cyanocobalamin) inj 1,000 mcgIndications:Intestinal postoperative nonabsorption 1000 mcg IM [id number] 10/29/2023 01/22/20 25 Active documented as of this encounter (statuses as of 02/26/2024) Active Problems Problem Noted Date Diagnosed Date [...] to work on weight loss. RIVERA RESEARCH OTHER*[id number] 12/15/2014 GERD (gastroesophageal reflux disease) 5 Allergic rhinitis 07/01/2014 Synovial cyst of lumbar spine 04/09/2013 Overview: 04/07/13 MRI [facility] lumbar- scanned 1. Broad based L4-5 disc herniation with mild central canal narrowing, also mild-mod b/l forminal narrowing. 2. [id number] likely synovial cyst L4-5 displacing/compressing the right L4-5 nerve root. 3. No fractures. documented as of this encounter (statuses as of 02/26/2024) Resolved Problems Problem Noted Date Diagnosed Date [...] having any current needs or questions 12/03/2017 Ericalenny Saez RN 12/03/2017 Problem Action Taken Date [...] risk of down syndrome, 1 in 200 [id number] testing done, showing normal chromosome representation Encounter for supervision of other normal 03/26/2013 11/12/2013 Overview: 10/09/2013 Tdap Vaccine administered per clinic protocol. Pt given VIS(vaccine information sheet) Erica Saez RN ICD-10 update of inactive term Routine general medical exam ination at a [facility] care facility 07/06/2011 10/08/2017 Overview: [place] refugee. Friend-Jinny Arias 07/22 pap WNL no transformation zone. Prior: Never had MACHINE OPERATOR SLITTER TECHNICIAN exam, delivered at home. Morbid obesity 07/06/2011 [...] as of this encounter (statuses as of 02/26/2024) Immunizations Name Administration Dates Next Due COVID-19 [...] 04/06/2016,03/03/2015 03/03/2016 Seasonal Influenza, Trivalen t, (IIV3), with Preserv, [...] No 08/18/2015 documented as of this encounter Miscellaneous Notes * Telephone Encounter - Keturah Castellanos OSA - 02/26/2024 9:22 AM EDT Pt calling in to schedule her B12 injection. Can someone please call and set up. documented in this encounter Plan of Treatment Upcoming Encounters Date Type Department Care Team (Late st Contact Info) Description 02/26/2024 11:00 AM EDT Immunization Ancillary [facility] [place] [address] [facility] 132 [facility] [place] [address] 02/27/2024 9:30 AM EDT Office Visit Allergy/Immunology [facility] [place] [address] [place] [address] Zoe Thomas PA-C 200 [facility] [place] [address] 05/11/2024 9:30 AM EST Laboratory Laboratory [facility] [address] [place] [phone] [place] [facility] [address] [facility] [place] [address] 05/18/2024 4:00 PM EST Office Visit Hematology/Oncology [facility] [place] [address] [place] [phone] Claudia Sandoval MD [address] [place] [address] 07/31/2024 10:00 AM EST Office Visit Family Practice [facility] [address] [place] [address] Jodi Bowles CRNP [address] [place] [address] Health Maintenance Due Date Last Done Comments HPV/Co-Test 2012 Depression Monitoring 05/12/2021 05/12/2020 Pneumococcal Vaccine: Pediatrics (0 to 5 Years) and At-Risk Patients (6 to 64 Years) (2 of 2 - PCV) 05/12/2021 05/12/2020 COVID-19 Vaccine (3 - season) 2024 06/07/2021, 08/09/2020 Influenza Vaccine (FLU shot) (#1) 2024 03/11/2023, 03/03/2021, 02/22/2020, Additional history exists Mammogram 08/11/2024 08/12/2023, 08/12/2023 Cervical Cancer Screening 12/06/2024 Pap Smear 12/06/2024 12/06/2021, 06/11, 05/14/2017, Additional history exists Diabetes Screening 11/05/2026 11/06/2023, 1 07/15/2022, 10/03/2022, Additional history exists Lipid Panel 03/29/2027 03/29/2022, 06/10, 08/13/2019, Additional history exists DTap/Tdap Vaccines (6 - Td or Tdap) 04/23/2028 04/23/2018, 10/09/2013, 12/25/2011, Additional history exists Hepatitis B Vaccine Completed 12/25/2011, 06/12/2011, 03/26/2011 HPV (Gardasil) Vaccine Aged Out No lo [...] and were consensually agreed upon. Care Teams Tools Developer Relationship Specialty Start Date End Date Jodi Bowles CRNP [address] [address] PCP - General Nurse Practitioner 06/18/23 documented as of this encounter
--- OUTSIDE RECORDS SUMMARY | 2024-03-16 05:54 | External Medical Summary | Summary of Care ---
Author Name Unknown Organization [facility] Address [address] [place] [address] Phone [phone] Care Team Providers Care Armored Car Guard And Driver Name Role Phone Luis FernandomarkJodi Fátima MENA Primary Care Provider Reason for Visit * Reason Onset Date Comments Allergy Return Allergy Injection 02/27/2024 Encounter Details Date Type Department Care Team (Latest Contact Info) Description 02/27/2024 9:30 AM EDT Office Visit [facility] 200 [place] [address] Zoe Thomas PA-C [address] [place] [address] Allergic rhinitis due to pollen, unspecified seasonality*; Allergic rhinitis due to animal hair and dander; Allergic rhinitis due to dust mite; Allergic conjunctivitis of both eyes; Mild persistent asthma without complication Allergies No known active allergiesdocumented as of this encounter (statuses as of 02/27/2024) Medications Medication Sig Dispensed Refills Start Date End Date Status [facility] Support THERAPY PACK Oral Take [...] 1,000 mcgIndications:Intestinal postoperative nonabsorption 1000 mcg IM [id number] 11/12/2022 09/15/19 25 Active vitamin b-12 (Cyanocobalamin) inj 1,000 mcgIndications:Intestinal postoperative nonabsorption 1000 mcg IM [id number] 10/29/2023 01/22/20 25 Active documented as of this encounter (statuses as of 02/27/2024) Active Problems Problem Noted Date Diagnosed Date [...] to work on weight loss. RIVERA RESEARCH OTHER*[id number] 12/15/2014 GERD (gastroesophageal reflux disease) 5 Allergic rhinitis 07/01/2014 Synovial cyst of lumbar spine 04/09/2013 Overview: 04/07/13 MRI [facility] lumbar- scanned 1. Broad based L4-5 disc herniation with mild central canal narrowing, also mild-mod b/l forminal narrowing. 2. [id number] likely synovial cyst L4-5 displacing/compressing the right L4-5 nerve root. 3. No fractures. documented as of this encounter (statuses as of 02/27/2024) Resolved Problems Problem Noted Date Diagnosed Date [...] risk of down syndrome, 1 in 200 [id number] testing done, showing normal chromosome representation Encounter for supervision of other normal 03/26/2013 11/12/2013 Overview: 10/09/2013 Tdap Vaccine administered per clinic protocol. Pt given VIS(vaccine information sheet) Erica Saez RN ICD-10 update of inactive term Routine general medical exam ination at a health care facility 07/06/2011 10/08/2017 Overview: Swazi refugee. Friend-Jinny Arias 07/22 pap WNL no transformation zone. Prior: Never had KITCHEN STEWARD exam, delivered at home. Morbid obesity 07/06/2011 [...] as of this encounter (statuses as of 02/27/2024) Immunizations Name Administration Dates Next Due COVID-19 [...] (gastroesophageal reflux disease) Allergic rhinitis RIVERA RESEARCH OTHER*[id number] Mild obstructive sleep apnea S/P laparoscopic sleeve [...] seen. Zoe Thomas PA-C Allergy and Immunology [facility] Supervising Physician: Ja Granger MD Type of [...] above.) PCP: ABDON SEYMOUR [address] [place] [address] [phone] documented in this encounter Nursing Notes * [...] 03/02/2024 9:00 AM EDT Immunization/Injecti on Allergy/Immunology [facility] [place] [address] [place] [address] [place], Nurse Allergy [facility] [address] [place] [address] [address] 05/11/2024 9:30 AM EST Laboratory Laboratory [facility] [place] [address] [place] [address] [place], Lab [facility] [address] [place] [place] [address] 05/18/2024 4:00 PM EST Office Visit Hematology/Oncology [facility] [place] [address] [place] [phone] Claudia Sandoval MD [address] [place] [address] 05/28/2024 9:15 AM EST Nurse Only Nutrition & Weight Management, [facility] [address] [place] [address] [facility] Bessie gonzalez [facility] [address] [place] [address] 07/31/2024 10:00 AM EST Office Visit Family [facility] [address] [place] [address] Jodi Bowles CRNP [address] [place] [address] Health Maintenance Due Date Last Done Comments [...] and were consensually agreed upon. Care Teams Armored Car Guard And Driver Relationship Specialty Start Date End Date Jodi Bowles CRNP [address] [place] [address] PCP - General Nurse Practitioner 06/18/23 documented as of this encounter"
--- OUTSIDE RECORDS SUMMARY | 2024-03-16 05:54 | External Medical Summary | Summary of Care ---
Author Name Unknown Organization [facility] Address [address] [place] [address] Phone [phone] Care Team Providers Care Medical Legal Investigator Name Role Phone Jodi Bowles Fátima MENA Primary Care Provider Reason for Visit * Reason Onset Date Comments Advice 02/27/2024 Encounter Details Date Type Department Care Team ([facility] Contact Info) Description 02/27/2024 Telephone Gynecology/Obstetrics [facility] [address] [place] [address] Rika Kruse MD [address] [facility] [place] [address] Advice Allergies No known active allergiesdocumented as of this encounter (statuses as of 02/27/2024) Medications Medication Sig Dispensed Refills Start Date End Date Status [facility] Support THERAPY PACK Oral Take by mouth. [...] 1,000 mcgIndications:Intestinal postoperative nonabsorption 1000 mcg IM [id number] 11/12/2022 09/15/19 25 Active vitamin b-12 (Cyanocobalamin) inj 1,000 mcgIndications:Intestinal postoperative nonabsorption 1000 mcg IM [id number] 10/29/2023 01/22/20 25 Active documented as of [...] to work on weight loss. RIVERA RESEARCH OTHER*[id number] 12/15/2014 GERD (gastroesophageal reflux disease) 5 Allergic rhinitis 07/01/2014 Synovial cyst of lumbar spine 04/09/2013 Overview: 04/07/13 MRI [facility] lumbar- scanned 1. Broad based L4-5 disc herniation with mild central canal narrowing, also mild-mod b/l forminal narrowing. 2. [id number] likely synovial cyst L4-5 displacing/compressing the right [...] risk of down syndrome, 1 in 200 [id number] testing done, showing normal chromosome representation Encounter for supervision of other normal 03/26/2013 11/12/2013 Overview: 10/09/2013 Tdap Vaccine administered per clinic protocol. Pt given VIS(vaccine information sheet) Erica Saez RN ICD-10 update of inactive term Routine general medical exam ination at a [facility] facility 07/06/2011 10/08/2017 Overview: [place]egalese refugee. Friend-Jinny Arias 07/22 pap WNL no transformation zone. Prior: Never had CAN FILLING AND CLOSING MACHINE TENDER exam, delivered at home. Morbid obesity 07/06/2011 [...] encounter Miscellaneous Notes * Telephone Encounter - Dagmar Araiza LPN - 02/27/2024 12:01 PM EDT Please offer first available, there are sooner openings with her at [facility]. Can see any provider if she wants to be sooner. * Telephone Encounter - Vesna Carrera OSA - 02/27/2024 11:31 AM EDT [facility] PHONE CALL INTAKE FORM- Requested Information from Caller: Who is calling: patient Issue or Concern: very sharp pains in uterus. No bleeding or discharge How long has the issue been going on? Comes and goes the past few days Any important details to add on behalf of the caller? Patient is wanting to come in to see Dr. Hatch only at the [facility] location and advised she has no availability until December 2024. Phone Number for Nurse to call back:[phone] documented in this encounter Plan of Treatment Upcoming Encounters Date Type Department Care Team (Late st Contact Info) Description 03/02/2024 9:00 AM EDT Immunization/Injecti on Allergy/Immunology [facility] [address] [place] [address] Nadja Nurse Allergy [facility] [address] [place] [address] 05/11/2024 9:30 AM EST Laboratory Laboratory [facility] [address] [place] [address] Nadja Lab [place] [address] [place] [address] [address] [address] 05/18/2024 4:00 PM EST Office Visit Hematology/Oncology [facility] [address] [place], [place] [address] Claudia Sandoval MD [address] [place] [address] 05/28/2024 9:15 AM EST Nurse Only Nutrition & Weight Management, [facility] [place] [address] [facility], Nurse Gi Nutrition [facility] 132 [facility] [place] [address] 07/31/2024 10:00 AM EST Office Visit Family Practice [facility] 132 [facility] [place] [address] Jodi Bowles CRNP [facility] [address] Health Maintenance Due Date Last Done Comments [...] and were consensually agreed upon. Care Teams Medical Legal Investigator Relationship Specialty Start Date End Date Jodi Bowles CRNP [address] [place] [address] PCP - General Nurse Practitioner 06/18/23 documented as of this encounter
--- OUTSIDE RECORDS SUMMARY | 2024-03-16 05:54 | External Medical Summary | Summary of Care ---
Author Name Unknown Organization [facility] Address [address] [place] [address] Phone [phone] Care Team Providers Care Solid Fiber Paster Operator Name Role Phone Luis FernandomarkKarensa Fátima MENA Primary Care Provider Reason for Visit * Reason Onset Date Comments Appointment 02/26/2024 Encounter Details Date Type Department Care Team ([facility] Contact Info) Description 02/26/2024 Telephone Nutrition & Weight Management, [place] [address] [place] [address] Perry Cole, DO [address] [place] [address] Appointment Allergies No known active allergiesdocumented as of this encounter (statuses as of 02/26/2024) Medications Medication Sig Dispensed Refills Start Date End Date Status [facility] Support THERAPY PACK Oral Take by mouth. [...] 1,000 mcgIndications:Intestinal postoperative nonabsorption 1000 mcg IM [id number] 11/12/2022 09/15/19 25 Active vitamin b-12 (Cyanocobalamin) inj 1,000 mcgIndications:Intestinal postoperative nonabsorption 1000 mcg IM [id number] 10/29/2023 01/22/20 25 Active documented as of [...] to work on weight loss. RIVERA RESEARCH OTHER*[id number] 12/15/2014 GERD (gastroesophageal reflux disease) 5 Allergic rhinitis 07/01/2014 Synovial cyst of lumbar spine 04/09/2013 Overview: 04/07/13 MRI [facility] lumbar- scanned 1. Broad based L4-5 disc herniation with mild central canal narrowing, also mild-mod b/l forminal narrowing. 2. [id number] likely synovial cyst L4-5 displacing/compressing the right [...] risk of down syndrome, 1 in 200 [id number] testing done, showing normal chromosome representation Encounter for supervision of other normal 03/26/2013 11/12/2013 Overview: 10/09/2013 Tdap Vaccine administered per clinic protocol. Pt given VIS(vaccine information sheet) Erica Saez RN ICD-10 update of inactive term Routine general medical exam ination at a [facility] care facility 07/06/2011 10/08/2017 Overview: [place] refugee. Friend-Jinny Arias 07/22 pap WNL no transformation zone. Prior: Never had APPLICATOR SPRAYER exam, delivered at home. Morbid obesity 07/06/2011 [...] encounter Miscellaneous Notes * Telephone Encounter - Rick Chambers LPN - 02/26/2024 2:32 PM EDT Scheduled * Telephone Encounter - Keturah Castellanos OSA - 02/26/2024 9:22 AM EDT Pt calling in to schedule her B12 injection. Can someone please call and set up. documented in this encounter Plan of Treatment Upcoming Encounters Date Type Department Care Team (Late st Contact Info) Description 02/27/2024 8:30 AM EDT Nurse Only Nutrition & Weight Management, [facility] 132 [facility] [place] [address] [facility] Nurse Gi Nutrition [facility] 132 [facility] [place] [address] 02/27/2024 9:30 AM EDT Office Visit Allergy/Immunology [facility] [address] [place] [address] Zoe Thomas PA-C 200 [facility] [place] [address] 05/11/2024 9:30 AM EST Laboratory Laboratory [facility] [address] [place] [phone] Nadja Lab [place] [address] [address] [facility] [place] [address] 05/18/2024 4:00 PM EST Office Visit Hematology/Oncology [facility] [address] [place] [phone] Claudia Sandoval MD 200 [facility] [place] [place] [address] 07/31/2024 10:00 AM EST Office Visit Family Practice [facility] [place] [address] [place] [address] Jodi Bowles CRNP [address] [place] [address] Health Maintenance Due Date Last Done Comments HPV/Co-Test 2012 Depression Monitoring 05/12/2021 05/12/2020 Pneumococcal Vaccine: Pediatrics (0 to 5 Years) and At-Risk Patients (6 to 64 Years) (2 of 2 - PCV) 05/12/2021 05/12/2020 COVID-19 Vaccine (3 - 2023- season) 2024 06/07/2021, 08/09/2020 Mammogram [...] and were consensually agreed upon. Care Teams Solid Fiber Paster Operator Relationship Specialty Start Date End Date Jodi Bowles CRNP [address] [place] [address] PCP - General Nurse Practitioner 06/18/23 documented as of this encounter
--- OUTSIDE RECORDS SUMMARY | 2024-03-16 05:54 | External Medical Summary | Summary of Care ---
Author Name Unknown Organization [facility] Address [address] [place] [address] Phone [phone] Care Team Providers Care Nurses' Aide Name Role Phone Jodi Bowles Fátima MENA Primary Care Provider Reason for Visit * Reason Comments Nurse Documentation B12 shot Encounter Details Date Type Department Care Team ([facility] Contact Info) Description 02/27/2024 8:30 AM EDT Nurse Only Nutrition & Weight Management, [facility] [address] [place] [address] [facility], Nurse Gi Nutrition [facility] [address] [place] [address] Nurse Documentation (B12 shot) Allergies No known active allergiesdocumented as of this encounter (statuses as of 02/27/2024) Medications Medication Sig Dispensed Refills Start Date End Date Status [facility] Support THERAPY PACK Oral Take by [...] 1,000 mcgIndications:Intestinal postoperative nonabsorption 1000 mcg IM [id number] 11/12/2022 09/15/19 25 Active vitamin b-12 (Cyanocobalamin) inj 1,000 mcgIndications:Intestinal postoperative nonabsorption 1000 mcg IM [id number] 10/29/2023 01/22/20 25 Active documented as of [...] to work on weight loss. RIVERA RESEARCH OTHER*[id number] 12/15/2014 GERD (gastroesophageal reflux disease) 5 Allergic rhinitis 07/01/2014 Synovial cyst of lumbar spine 04/09/2013 Overview: 04/07/13 MRI [facility] lumbar- scanned 1. Broad based L4-5 disc herniation with mild central canal narrowing, also mild-mod b/l forminal narrowing. 2. [id number] likely synovial cyst L4-5 displacing/compressing the right [...] risk of down syndrome, 1 in 200 YgelqapU67 testing done, showing normal chromosome representation Encounter for supervision of other normal 03/26/2013 11/12/2013 Overview: 10/09/2013 Tdap Vaccine administered per clinic protocol. Pt given VIS(vaccine information sheet) Erica Saez RN ICD-10 update of inactive term Routine general medical exam ination at a health care facility 07/06/2011 10/08/2017 Overview: [place] refugee. Friend-Jinny Arias 07/22 pap WNL no transformation zone. Prior: Never had PSYCHOLOGY PHYSICIAN exam, delivered at home. Morbid obesity 07/06/2011 [...] No 08/18/2015 documented as of this encounter Nursing Notes * Rick Chambers LPN - 02/27/2024 8:33 AM EDT Chief Complaint Patient presents with Nurse Documentation B12 shot documented in this encounter Plan of Treatment Upcoming Encounters Date Type Department Care Team (Late st Contact Info) Description 02/27/2024 9:30 AM EDT Office Visit Allergy/Immunology [facility] [place] [address] [place] [address] Zoe Thomas PA-C [address] [place] [address] 05/11/2024 9:30 AM EST Laboratory Laboratory [facility] [address] [place] [phone] [place], Lab [facility] [address] [facility] [place] [address] 05/18/2024 4:00 PM EST Office Visit Hematology/Oncology [facility] [place] [address] [place] [phone] Claudia Sandoval MD [address] [place] [address] 05/28/2024 9:15 AM EST Nurse Only [facility], [facility] 132 [facility] [place] [address] Nurse Rolando Gi Nutrition [place] 132 [facility] [place] [address] 07/31/2024 10:00 AM EST Office Visit [facility] 132 [facility] [place] [address] Jodi Bowles CRNP [address] [place] [address] Health Maintenance Due Date Last Done Comments [...] as of this encounter Visit Diagnoses Diagnosis 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 Care Teams Nurses' Aide Relationship Specialty Start Date End Date Jodi Bowles CRNP [address] [place] [address] PCP - General Nurse Practitioner 06/18/23 documented as of this encounter
--- OUTSIDE RECORDS SUMMARY | 2024-03-16 05:54 | External Medical Summary | Summary of Care ---
Author Name Unknown Organization [facility] Address [address] [place] [address] Phone [phone] Care Team Providers Care Bulk Filler Name Role Phone Jodi Bowles Fátima MENA Primary Care Provider Reason for Visit * Reason Onset Date Comments Medication Administration 02/26/2024 Flu an d/or Pneumo Inj Encounter Details Date Type Department Care Team ([facility] st Contact Info) Description 02/26/2024 11:00 AM EDT Immunization Ancillary [facility] [address] [place] [address] [facility] [place] Flu Shot Clinic [facility] [address] [place] [address] Need for prophylactic vaccination and inoculation against influenza* Allergies No known active allergiesdocumented as of this encounter (statuses as of 02/26/2024) Medications Medication Sig Dispensed Refills Start Date End Date Status [facility] Support THERAPY PACK Oral Take by mouth. [...] 1,000 mcgIndications:Intestinal postoperative nonabsorption 1000 mcg IM [id number] 11/12/2022 09/15/19 25 Active vitamin b-12 (Cyanocobalamin) inj 1,000 mcgIndications:Intestinal postoperative nonabsorption 1000 mcg IM [id number] 10/29/2023 01/22/20 25 Active documented as of [...] to work on weight loss. [facility] OTHER*[id number] 12/15/2014 GERD (gastroesophageal reflux disease) 5 Allergic rhinitis 07/01/2014 Synovial cyst of lumbar spine 04/09/2013 Overview: 04/07/13 MRI [facility] lumbar- scanned 1. Broad based L4-5 disc herniation with mild central canal narrowing, also mild-mod b/l forminal narrowing. 2. [id number] likely synovial cyst L4-5 displacing/compressing the right [...] needs or questions 11/05/2017 Lesvia Kaba RN 5/29/18 Problem Action Taken Date entered Entered by Date resolved Current needs or questions Patient denies having any current needs or questions 12/03/2017 Erica Saez RN 12/03/2017 Problem Action Taken Date entered Entered by Date resolved Current needs or questions Patient denies having any current needs or questions 01/01/2018 Noy Araiza, ALANIS 01/01/2018 Problem Action Taken Date entered Entered [...] risk of down syndrome, 1 in 200 [id number] testing done, showing normal chromosome representation Encounter for supervision of other normal 03/26/2013 11/12/2013 Overview: 10/09/2013 Tdap Vaccine administered per clinic protocol. Pt given VIS(vaccine information sheet) Erica E Park, RN ICD-10 update of inactive term Routine general medical exam ination at a health care facility 07/06/2011 10/08/2017 Overview: [place] refugee. Friend-Jinny Arias 07/22 pap WNL no transformation zone. Prior: Never had [employer] exam, delivered at home. Morbid obesity 07/06/2011 [...] as of this encounter Progress Notes * Anne-Marie Stephen LPN - 02/26/2024 11:11 AM EDT PRE - ADMINISTRATION DOCUMENTATION Are you experiencing any cold symptoms or fever? No Have you had Guillain-Socorro Syndrome (an illness that causes paralysis) within the last 6 weeks? No Have you had the flu shot in the past? YES Have you ever had a reaction to the flu shot? No Anne-Marie Stephen LPN, 02/26/2024 11:11 AM Immunization Administration Documentation Time Out Procedure Performed: Yes Patient Identified (Ask Name/Date of ): Yes Does the patient have a fever greater than 101 degrees today? No Patient allergic to latex? No VFC Stock: No Injection(s) verified: Yes, Injection Name: Fluzone Verified Side and Site: Yes Verified Shot(s) with Parent(s)/Patient: Yes documented in this encounter Plan of Treatment Upcoming Encounters Date Type Department Care Team (Late st Contact Info) Description 02/27/2024 9:30 AM EDT Office Visit Allergy/Immunology [facility] [address] [place] [id number] Zoe Thomas PA-C [address] [place] [address] 05/11/2024 9:30 AM EST Laboratory [facility] [address] [place] [place] [address] [phone] [place] [address] 05/18/2024 4:00 PM EST Office Visit Hematology/Oncology [facility] [address] [place] [phone] Claudia Sandoval MD [address] [place] [address] 07/31/2024 10:00 AM EST Office Visit Family Practice [facility] [address] [place] [address] Jodi Bowles CRNP [address] [place] [address] Health Maintenance Due Date Last Done Comments [...] as of this encounter Visit Diagnoses Diagnosis Need for prophylactic vaccination and inoculation against influenza- Primary documented in this encounter Advance Directives * [...] were consensually agreed upon. Care Teams Bulk Filler Relationship Specialty Start Date End Date Jodi Bowles CRNP [address] [phone] PCP - General Nurse Practitioner 06/18/23 documented as of this encounter
[2024-03-16] MEDS: LR 15ML/HR IV SCH (06:27)
[2024-03-16] MEDS: LR 60ML/HR IV SCH (06:27)
[2024-03-16] MEDS ORDERED: ATROPINE SULFATE 0.1 MG/ML 10ML SYR IV PRN (06:40)
[2024-03-16] MEDS ORDERED: PROMETHAZINE HCL 6.25 MG in SODIUM CHLORIDE 0.9% 50 ML IV PRN (06:40)
[2024-03-16] MEDS ORDERED: ONDANSETRON INJ 2 MG/ML 2 ML VIAL IV PRN (06:40)
[2024-03-16] MEDS ORDERED: ePHEDrine sulfate 50 MG/ML AMP IV PRN (06:40)
[2024-03-16] MEDS ORDERED: MIDAZOLAM HCL 1 MG/ML 2ML VIAL ONE (06:51)
[2024-03-16] MEDS ORDERED: fentaNYL citrate PF 100 MCG/2 ML VIAL ONE ×3 (06:51→10:25)
[2024-03-16] MEDS ORDERED: REMIFENTANIL HCL 1 MG VIAL IV ONE (06:58)
--- NOTE | 2024-03-16 07:07 | History & Physical Bridge Note ---
Date of Service March 16, 2024 History & Physical Bridge Note I have examined the patient, reviewed the History & Physical and in the interval since the performance of the History & Physical I have noted the following changes of clinical significance: no changes noted
[2024-03-16] MEDS ORDERED: LIDOCAINE 2% 2 ML VIAL/AMP(20MG/ML) INFIL ONE (07:47)
[2024-03-16] MEDS ORDERED: SUCCINYLCHOLINE CHLORIDE 20 MG/ML 10 ML VIAL IV ONE (07:47)
[2024-03-16] MEDS ORDERED: ONDANSETRON INJ 2 MG/ML 2 ML VIAL ONE (07:47)
[2024-03-16] MEDS ORDERED: SUGAMMADEX SODIUM 200 MG/2 ML VIAL IV ONE (07:47)
[2024-03-16] MEDS ORDERED: ROCURONIUM BROMIDE 10 MG/ML 5 ML VIAL IV ONE (07:47)
[2024-03-16] MEDS ORDERED: PROPOFOL IV EMULSION 10 MG/ML 20 ML VIAL IV ONE (07:47)
[2024-03-16] MEDS ORDERED: DEXAMETHASONE SOD INJ 4 MG/ML VIAL ONE (07:47)
[2024-03-16] MEDS ORDERED: LARYING-O-JET KIT (LTA) ONE (07:47)
[2024-03-16] MEDS ORDERED: ePHEDrine sulfate 50 MG/5 ML SYR ONE (08:32)
[2024-03-16] MEDS: ceFAZolin 2000MG 2,000 MG/15 ML SYR IV SCH ×2 (08:37→17:59)
[2024-03-16] MEDS: VANCOMYCIN HCL 1000MG/20ML VIAL ONE (08:50)
[2024-03-16] MEDS: BUPIVACAINE/EPINEPHRINE 0.5% MPF 1:200,000 30 ML VIAL ONE (11:35)
[2024-03-16] MEDS: MINERAL OIL LIGHT 10 ML BTL ONE (11:36)
[2024-03-16] MEDS: THROMBIN 5000 UNITS KIT ONE (11:38)
[2024-03-16] MEDS: GELATIN SPONGE 12-7MM ONE (11:38)
--- NOTE | 2024-03-16 12:04 | Post Operative Brief Note ---
PG Immediate Post Op with CF Date of Surgery March 16, 2024 Pre & Post Diagnosis Operation Date: 03/16/24 07:15 Pre-Op Diagnosis: Spondylolisthesis at L4-L5 Post-Op Diagnosis: Spondylolisthesis at L4-L5 I identified the patient and participated in the time-out.: Yes Procedure Operation Date: 03/16/24 07:15 Actual Procedures p L4-L5 Lateral Lumbar Interbody Fusion with Interbody Cage and Posterior Instrumentation, with Spinal Cord Monitoring - Moe Ojeda MD Surgeon Moe Ojeda MD Still Runner none Estimated Blood Loss 30 Findings Consistent with Post-Op Diagnosis Specimens Specimen Description: no specimen collected per surgeon Drains Pelaez Catheter
[2024-03-16] MEDS ORDERED: NALOXONE HCL 0.4 MG/1 ML VIAL/CARP IV PRN (12:05)
[2024-03-16] MEDS ORDERED: ACETAMINOPHEN 1,000 MG/100 ML VIAL IV PRN (12:05)
[2024-03-16] MEDS ORDERED: ONDANSETRON 4 MG OD TAB PO PRN (12:05)
[2024-03-16] MEDS ORDERED: PROMETHAZINE 12.5 MG/50.5 ML BAG IV PRN (12:05)
[2024-03-16] MEDS ORDERED: hydrOXYzine HCl 25 MG TAB PO PRN (12:05)
[2024-03-16] MEDS ORDERED: FAMOTIDINE 20 MG TAB PO PRN (12:05)
[2024-03-16] MEDS ORDERED: METOCLOPRAMIDE HCL INJ 5 MG/ML 2 ML VIAL IV PRN (12:05)
[2024-03-16] MEDS ORDERED: ACETAMINOPHEN 500 MG TAB PO PRN (12:05)
[2024-03-16] MEDS ORDERED: DO NOT ADMINISTER FLU VACCINE PRN (12:05)
[2024-03-16] MEDS ORDERED: SOD PHOSPHATE/SOD BIPHOSPHATE ENEMA 132 ML BTL PR PRN (12:05)
[2024-03-16] MEDS ORDERED: bisacodyL 10 MG SUPP PR PRN (12:05)
[2024-03-16] MEDS ORDERED: DO NOT ADMINISTER PNEUMOCOCCAL VACCINE PRN (12:05)
[2024-03-16] MEDS ORDERED: ALUMINUM/MAGNESIUM SUSP 30 ML UDC PO PRN (12:05)
[2024-03-16] MEDS ORDERED: LORazepam 0.5 MG TAB PO PRN (12:05)
[2024-03-16] MEDS ORDERED: LORazepam 2 MG/1 ML VIAL IV PRN (12:05)
[2024-03-16] MEDS ORDERED: MAGNESIUM HYDROXIDE SUSP 30 ML UDC PO PRN (12:05)
[2024-03-16] MEDS ORDERED: diphenhydrAMINE Capsule 25 MG CAP PO PRN (12:05)
[2024-03-16] MEDS: fentaNYL citrate PF 100 MCG/2 ML VIAL IV PRN (12:08)
[2024-03-16] MEDS: HYDROmorphone INJ 1 MG/ML SYRINGE IV PRN (12:28)
[2024-03-16] MEDS: HYDROmorphone INJ 2 MG/ML SYR/VIAL IV STA (13:13)
[2024-03-16] MEDS: HYDROmorphone INJ 2 MG/ML SYR/VIAL ONE (13:20)
[2024-03-16] MEDS ORDERED: NON-FORMULARY MEDICATION (Azelastine-Fluticasone 137-50 mcg/spray Spray,Non-Aerosol) INTNAS PRN (14:12)
[2024-03-16] MEDS ORDERED: ALBUTEROL HFA 8 GM INHALER INH PRN (14:12)
[2024-03-16] MEDS ORDERED: FLUTICASONE PROPIONATE NA SPR 16 GM BTL PRN (14:12)
--- NOTE | 2024-03-16 14:24 | Anesthesiology Progress Note ---
Date of Service March 16, 2024 Anesthesia Post Procedure Vital Signs Vital Signs: Temp Pulse Pulse Resp BP Pulse Ox O2 Del Method 03/16/24 14:12 37.1 C 83 16 127/76 100 Nasal Cannula 03/16/24 14:00 84 12 127/78 99 Nasal Cannula 03/16/24 13:45 95 H 12 124/77 99 Nasal Cannula 03/16/24 13:35 36.5 C 92 H 16 124/75 98 Nasal Cannula 03/16/24 13:25 93 H 16 112/78 98 Nasal Cannula 03/16/24 13:15 84 12 131/83 99 Nasal Cannula 03/16/24 13:05 85 12 120/78 100 Nasal Cannula 03/16/24 12:55 91 H 12 125/77 100 Nasal Cannula 03/16/24 12:45 82 16 129/78 99 Nasal Cannula 03/16/24 12:35 77 12 129/79 99 Nasal Cannula 03/16/24 12:25 85 16 133/80 96 Room Air 03/16/24 12:15 88 12 133/84 95 Room Air 03/16/24 12:05 92 H 16 137/84 97 Room Air 03/16/24 11:57 36.4 C L 105 H 16 142/86 H 98 Room Air 03/16/24 06:09 36.2 C L 78 20 122/72 98 Room Air O2 Flow Rate 03/16/24 14:12 2 03/16/24 14:00 2 03/16/24 13:45 2 03/16/24 13:35 2 03/16/24 13:25 2 03/16/24 13:15 2 03/16/24 13:05 2 03/16/24 12:55 2 03/16/24 12:45 2 03/16/24 12:35 2 03/16/24 12:25 03/16/24 12:15 03/16/24 12:05 03/16/24 11:57 03/16/24 06:09 Pain Intensity Bilateral Lower Back: Pain Intensity: 7 Back: Pain Intensity: 4 Transfer of Care Handoff Completed per policy Notes Mental Status: alert / awake / arousable and participated in evaluation Patient Amnestic to Procedure: Yes Nausea / Vomiting: adequately controlled Pain: adequately controlled Airway Patency, RR, SpO2: stable & adequate BP & HR: stable & adequate Hydration State: stable & adequate Anesthetic Complications: no major complications apparent and Pt Satisfied with anesthetic care
--- NOTE | 2024-03-16 14:49 | Fluoroscopy Report ---
FL lumbar spine 2-3V CLINICAL HISTORY: L4-5 LAT LUMBAR INTERBODY FUSION, CAGE; POSTERIOR INSTRUMENT COMPARISON STUDY: Radiograph 08/08/2023 FLUOROSCOPY TIME: 403.5 seconds FLUOROSCOPY IMAGES: 11 EXPOSURE DOSE: 248.09 mGy FINDINGS: Discectomy with posterior interbody satinder and screw fusion hardware is noted at what is label ed the L4-L5 level. Alignment appears satisfactory. Overlying skin mary. No unexpected opaque fore ign bodies identified. IMPRESSION: Fluoroscopic assistance as above. ACT 112: Negative or not required by law. Electronically signed by: Rogelio Osorio M.D. 03/16/2024 2:47 PM
[2024-03-16] MEDS: ONDANSETRON INJ 2 MG/ML 2 ML VIAL IV PRN (14:52)
[2024-03-16] MEDS: LACTATED RINGER'S 1,000 ML IV SCH (14:54)
--- NOTE | 2024-03-16 15:14 | Hospitalist Consultation ---
Date of Consultation March 16, 2024 Assessment & Plan (1) S/P lumbar spinal fusion: L4-L5 lateral lumbar interbody fusion with Dr. Ojeda on 03/16 Postop lumbar spine x-ray revealed hardware intact with alignment satisfactory Perioperative antibiotics, pain control, fluids, and DVT PPx per the primary team Patient was trialed on room air and remained around 97% Will continue to slowly wean off oxygen Patient is not currently in antihypertensive medications AM CBC, BMP added; we will follow (2) Hx of sleep apnea: Patient is not currently on a CPAP at night (3) Obesity: Patient is currently taking Wegovy for weight loss Hold Wegovy for now Plan Agree with current medical decision making: Disposition: MedSur Full liquid diet and advance as tolerated Thank you for allowing us to participate in the care of this patient, please reach out with any questions or concerns; we will continue to follow. Supervising Physician Co-Signing Physician Notes I personally saw and examined the patient. I independently reviewed the labs, problem list, medication list, past medical history and family history. I verified all childers points and agree with Nehemias Ruiz PA-C with the following exceptions and/or additions: 43 year old POD#0 s/p lumbar spinal fusion. No concerns or questions from patient O/E HS RRR, no murmurs, Chest CTAB, Abdo SNT A/P No change to above plan History of Present Illness Reason for Consultation: Postop medical management Requesting Physician: Moe Ojeda MD Attending Physician: Moe Ojeda MD History of Present Illness Salvador is a 43-year-old female with PMH of lumbar radiculopathy. She presented on 03/16 for an L4-L5 lateral lumbar fusion with interbody cage with Dr. Ojeda. Per review of brief operative note, EBL was listed as 30 cc, and findings were consistent with postop diagnosis. Per review of vitals postop, patient has been mildly tachycardic up to 100 bpm; vitals otherwise stable. Patient has no new complaints at time of consult. She rates her lower back pain 6/10, and characterizes it as a constant, "throbbing" pain. It is mainly on her right lower back at the site of the surgery dressing. Pain is not exacerbated by movements. No radiation down the legs or wrapping around to the abdomen. Patient has not been taking any pain medicine at home for her lower back. She reports that she stopped all her regular medications 1 week ago and has not taken anything over the past 7 days. Patient takes Wegovy for her weight, no history of diabetes. She does not use supplemental oxygen at baseline or CPAP at night. She reports she is drinking well since the surgery; has not tried eating food yet. Patient has not gotten up to use the restroom since her surgery. She denies smoking, tobacco use, recent alcohol use. ROS: Patient endorses lower back pain (worse on the right side), nausea, and vomiting up clear yellow liquid. Patient denies fever, chills, night sweats, dizziness, lightheadedness, chest pain, SOB, cough, pleuritic CP, abdominal pain, saddle anesthesia, or numbness or tingling in the legs. Allergies Allergy/AdvReac Type Severity Reaction Status Date / Time No Known Allergies Allergy Verified 02/12/24 13:55 Home Medications Medication Instructions Recorded Confirmed Type meloxicam 7.5 mg tablet 7.5 - 15 mg (1 - 2 x 7.5 mg) PO 08/08/23 03/16/24 Rx DAILY #30 tabs albuterol sulfate 90 mcg/actuation 2 puff inhalation QID PRN sob 02/12/24 03/16/24 History aerosol inhaler azelastine 137 mcg-fluticasone 50 1 spray intranasal BID PRN 02/12/24 03/16/24 History mcg/spray nasal spray Congestion fluticasone propionate 110 2 puff inhalation BID PRN sob 02/12/24 03/16/24 History mcg/actuation HFA aerosol inhaler fluticasone propionate 50 1 spray intranasal DAILY PRN 02/12/24 03/16/24 History mcg/actuation nasal Allergy Symptoms spray,suspension magnesium oxide 400 mg PO DAILY 02/12/24 03/16/24 History multivitamin 1 tab PO QAM 02/12/24 03/16/24 History semaglutide (weight loss) 1 mg/0.5 1 mg subcut Q7D 02/12/24 03/16/24 History mL subcutaneous pen injector (Wegovy) Patient History Medical History Asthma Excess skin Hx procedures to remove excess skin from arms and abdomen Hx of iron deficiency anemia Follows with [facility] hematology Hx iron infusions Hx of sleep apnea Does not use device (has not had retesting after weight loss) Obesity Taking Wegovy for weight loss Seasonal allergies Surgical History History of cholecystectomy Hx of myomectomy Hx of wisdom tooth extraction S/P gastric bypass sleeve gastrectomy 2015 Family History Mother Diabetes Thyroid disorder Father Heart disease Social History Smoking Status: Never smoker Second Hand Exposure: No; Do You Dip or Chew Tobacco: No; Tobacco Cessation Education Requested by Patient: No Hx Alcohol Use: No Hx Substance Use: No Preferred Language: Japanese Communication Ability: Effective Security Assurance Specialist Required: No Beliefs That Will Affect Care: None marital status: Current Living Situation: Spouse and Family Current Living Situation Comment: 17 and 12 yo sons, 4 yo daughter Other Information That Helps Us Care for You: No Feels Safe at Home: Yes Safety Concerns: Feels Safe At This Time Assistive Devices: None Review of Systems Review of Systems: See HPI above Physical Exam Physical Exam: General: no acute distress; pleasant affect; non-toxic appearing; well- nourished; cooperative HEENT: normocephalic, atraumatic; no scleral icterus; PERRLA; vision and hearing grossly intact Neck: supple; no lymphadenopathy; trachea midline Skin: warm, dry without signs of tenting; no cyanosis; no rashes, bruising, lesions, or erythema noted CV: chest wall NTP; RRR; S1/S2 normal; no murmurs/rubs/gallops; pulses intact and symmetric at radial, DP, and PT Lungs: no acute respiratory distress; symmetrical chest wall expansion; clear breath sounds across all lung burch w/o adventitious sounds; no wheezing ABD: Soft, NTP; BS present; no rebound/guarding; no distention Back: Surgical dressing without signs of infection, erythema, or drainage; mildly TTP around the surgical dressing; upper/middle spine NTP MSK: no tics or fasciculations; no edema noted in the LEs b/l, nonerythematous; patient demonstrates ability to wiggle toes/plantarflex/dorsiflex with 5/5 strength in the lower extremities bilaterally Neuro: A&Ox3; normal mood and affect; fluent speech; no focal deficits; sensation intact and symmetric in the LEs b/l assessed via light touch SpO2 100% on 2L NC SpO2 97% on RA Results & Data Results & Data Vital Signs (Past 12 Hours) Vital Signs Temp Pulse Pulse Pulse Resp BP Pulse Ox 03/16/24 15:06 36.6 C 81 16 118/74 100 03/16/24 14:40 36.6 C 100 H 18 135/79 100 03/16/24 14:27 03/16/24 14:12 37.1 C 83 16 127/76 100 03/16/24 14:00 84 12 127/78 99 03/16/24 13:45 95 H 12 124/77 99 03/16/24 13:35 36.5 C 92 H 16 124/75 98 03/16/24 13:25 93 H 16 112/78 98 03/16/24 13:15 84 12 131/83 99 03/16/24 13:05 85 12 120/78 100 03/16/24 12:55 91 H 12 125/77 100 03/16/24 12:45 82 16 129/78 99 03/16/24 12:35 77 12 129/79 99 03/16/24 12:25 85 16 133/80 96 03/16/24 12:15 88 12 133/84 95 03/16/24 12:05 92 H 16 137/84 97 03/16/24 11:57 36.4 C L 105 H 16 142/86 H 98 03/16/24 06:09 36.2 C L 78 20 122/72 98 O2 Del Method O2 Flow Rate 03/16/24 15:06 Nasal Cannula 2 03/16/24 14:40 Nasal Cannula 2 03/16/24 14:27 Nasal Cannula 2 03/16/24 14:12 Nasal Cannula 2 03/16/24 14:00 Nasal Cannula 2 03/16/24 13:45 Nasal Cannula 2 03/16/24 13:35 Nasal Cannula 2 03/16/24 13:25 Nasal Cannula 2 03/16/24 13:15 Nasal Cannula 2 03/16/24 13:05 Nasal Cannula 2 03/16/24 12:55 Nasal Cannula 2 03/16/24 12:45 Nasal Cannula 2 03/16/24 12:35 Nasal Cannula 2 03/16/24 12:25 Room Air 03/16/24 12:15 Room Air 03/16/24 12:05 Room Air 03/16/24 11:57 Room Air 03/16/24 06:09 Room Air Diagnostic Findings Lumbar Spine X-Ray 03/16/24 07:15 FL lumbar spine 2-3V CLINICAL HISTORY: L4-5 LAT LUMBAR INTERBODY FUSION, CAGE; POSTERIOR INSTRUMENT COMPARISON STUDY: Radiograph 08/08/2023 FLUOROSCOPY TIME: 403.5 seconds FLUOROSCOPY IMAGES: 11 EXPOSURE DOSE: 248.09 mGy FINDINGS: Discectomy with posterior interbody satinder and screw fusion hardware is noted at what is labeled the L4-L5 level. Alignment appears satisfactory. Overlying skin mary. No unexpected opaque foreign bodies identified. IMPRESSION: Fluoroscopic assistance as above. ACT 112: Negative or not required by law. Electronically signed by: Rogelio Osorio M.D. 03/16/2024 2:47 PM PG Care Time/CCT Total # of Minutes Spent Total Time Spent with Patient: Total time spent is greater than 50% in coordination of care (as documented) at patient's floor/unit and/or counseling patient: Coding [place] [address] IN/OBS CONSULT LVL 3,45M Patient Type Established Medical Decision Making Low Complexity Diagnoses S/P lumbar spinal fusion Z98.1 Hx of sleep apnea Z86.69 Obesity E66.9
[2024-03-16] MEDS: CYCLOBENZAPRINE HCL 10 MG TAB PO SCH (15:24)
[2024-03-16] MEDS: oxyCODONE/ACETAMINOPHEN 5mg/325mg TAB PO PRN (15:27)
[2024-03-16] MEDS: HYDROmorphone INJ 0.5 MG/0.5 ML SYR IV PRN (20:16)
[2024-03-16] MEDS: DOCUSATE SODIUM/SENNA 50/8.6MG TAB PO SCH (20:25)
[2024-03-17] MEDS: POLYETHYLENE (MIRALAX) 17 GM PACK PO SCH (05:37)
[2024-03-17 06:28] LABS: Basophils # (auto) 0.01 K/uL (0.00-0.20); Basophils % (auto) 0.2 %; Eosinophils # (auto) 0.06 K/uL (0.00-0.50); Eosinophils % (auto) 1.1 %; Hematocrit (blood only) 29.7 % (37.0-47.0); Immature Granulocytes # (auto) 0.01 K/uL (0.01-0.20); Immature Granulocytes % (auto) 0.2 %; Lymphocytes # (auto) 1.33 K/uL (1.20-3.40); Lymphocytes % (auto) 25.4 %; Mean Corpuscular Hemoglobin 28.1 pg (25.0-34.0); Mean Corpuscular Hgb Conc 33.7 g/dL (32.0-36.0); Mean Corpuscular Volume 83.4 fL (80.0-100.0); Mean Platelet Volume 10.9 fL (9.4-12.4); Monocytes # (auto) 0.43 K/uL (0.11-0.59); Monocytes % (auto) 8.2 %; Neutrophils % (auto) 64.9 %; Platelet Count 116 K/uL (130-400); RDW Coefficient of Variation 12.8 % (11.5-14.5); RDW Standard Deviation 39.1 fL (36.4-46.3); Red Blood Count 3.56 M/uL (4.20-5.40); White Blood Count 5.24 K/ul (4.8-10.8)
[2024-03-17 06:39] LABS: BUN Creatinine Ratio 14.5 (10-20); Calcium 8.6 mg/dl (8.6-10.3); Creatinine Clr Calc Pharmacy 122.1 ml/min
[2024-03-17] MEDS: FLUTICASONE FUROATE 100MCG 14 PUFFS/INHALER INH SCH (08:15)
[2024-03-17] MEDS: MAGNESIUM OXIDE 400 MG TAB PO SCH (08:16)
--- NOTE | 2024-03-17 11:06 | Orthopedic Progress Note ---
Date of Service March 17, 2024 Subjective Patient seen and examined, has some incisional pain but no new significant symptomatology. Incision sites unremarkable, motor intact. Impression/plan: Postop day 1 from L4-5 lateral cage placement, posterior instrumentation. Patient continued today with physical therapy, reevaluation later today tomorrow morning depending the other consultations. Review of Systems All systems reviewed & are unremarkable except as noted in HPI & below. Physical Exam . Results & Data Results & Data Laboratory Results . Diagnostic Findings . PG Care Time/CCT Total # of Minutes Spent Total Time Spent with Patient: Total time spent is greater than 50% in coordination of care (as documented) at patient's floor/unit and/or counseling patient: Coding Level of Care Code 01625 Post Operative Follow-Up
--- NOTE | 2024-03-17 12:43 | Hospitalist Progress Note ---
Date of Service March 17, 2024 Assessment & Plan (1) S/P lumbar spinal fusion: Plan: L4-L5 lateral lumbar interbody fusion with Dr. Ojeda on 03/16 - Postop lumbar spine x-ray revealed hardware intact with alignment satisfactory - Perioperative antibiotics, pain control, fluids, and DVT PPx per the primary team - Well tolerating regular diet. Passing gas, no bowel movement reported postop yet - Weened off supplemental O2 and has remained stable on room air - Vital signs stable - Acute blood loss anemia secondary to surgery. Hgb stable at 10.0, no signs of active bleeding, no indication for blood transfusion at this time - Patient is medically stable for discharge from hospital medicine's perspective (2) Hx of sleep apnea: Plan: Patient is not currently on a CPAP at night (3) Obesity: Plan: Patient is currently taking Wegovy for weight loss Hold Wegovy for now Plan Updated and son at bedside Patient is medically stable for discharge from hospital medicine's perspective Thank you for allowing us to participate in the care of this patient, please reach out with any questions or concerns; we will continue to follow. Admission and Anticipated Discharge Date Admission Date: March 16, 2024 Subjective Patient seen and evaluated at bedside with and son present. She reports that her back pain is well-controlled with medication. She has been ambulating and transferring to the bedside chair, but notes that she gets easily fatigued/pain increases with this and then she rests and feels better again. She has been tolerating her diet well. She has been voiding without difficulty and passing gas, but no bowel movement postop yet. No additional complaints or concerns at this time. Physical Exam Physical Exam: General: No acute distress, nondiaphoretic, well-developed, well-nourished. Skin: The skin was without rashes, erythema, edema, or bruising. Cardiac: Regular rate and rhythm without murmurs gallops or rubs. Pulm: Clear to auscultation bilaterally without wheezes, rales or rhonchi. No respiratory distress. 98% on room air. Abdominal: Soft, nontender, nondistended. Bowel sounds present. Neuro: A&O x3. No focal neurological deficits. Back: Surgical dressing without signs of infection, erythema, or drainage; mildly TTP around the surgical dressing; upper/middle spine NTP MSK: Able to wiggle toes/plantarflex/dorsiflex with 5/5 strength in lower extremities bilaterally. Sensation intact and symmetric in lower extremities bilaterally. Results & Data Results & Data Vital Signs (Past 12 Hours) Vital Signs Temp Pulse Resp BP BP Pulse Ox O2 Del Method 03/17/24 07:38 97.9 F 79 16 112/71 96 Room Air 03/17/24 02:02 98.1 F 73 16 102/67 96 Room Air Laboratory Results Reviewed CBC Reviewed BMP PG Care Time/CCT Total # of Minutes Spent Total Time Spent with Patient: Total time spent is greater than 50% in coordination of care (as documented) at patient's floor/unit and/or counseling patient: Coding Level of Care Code 76537 SUB INP/OBS CARE 2/35MIN Diagnoses S/P lumbar spinal fusion Z98.1 Hx of sleep apnea Z86.69 Obesity E66.9
[2024-03-18 06:13] LABS: Hematocrit (blood only) 31.4 % (37.0-47.0); Hemoglobin 10.4 g/dl (12.0-16.0); Mean Corpuscular Hemoglobin 27.9 pg (25.0-34.0); Mean Corpuscular Hgb Conc 33.1 g/dL (32.0-36.0); Mean Corpuscular Volume 84.2 fL (80.0-100.0); Mean Platelet Volume 10.5 fL (9.4-12.4); Platelet Count 115 K/uL (130-400); RDW Coefficient of Variation 12.9 % (11.5-14.5); RDW Standard Deviation 39.8 fL (36.4-46.3); Red Blood Count 3.73 M/uL (4.20-5.40); White Blood Count 4.64 K/ul (4.8-10.8)
[2024-03-18 07:32] VITALS: RESP 18; TEMP 98.6; O2SAT 94
--- NOTE | 2024-03-18 07:37 | Orthopedic Progress Note ---
Date of Service March 18, 2024 Subjective Patient seen and examined, she still has some posterior incisional symptoms but has resolution of her preoperative low back pain and leg pain. Surgical sites unremarkable, dressings removed. No findings to suggest any type of infection. Motor intact in lower extremities. Impression: 2 days status post lateral cage placement and posterior instrumentation at L4-5. Plan: Discharge home today prescription to be sent for pain medication, follow- up in 2 weeks. Patient was advised as to surgical site care and activities. Review of Systems All systems reviewed & are unremarkable except as noted in HPI & below. Physical Exam . Results & Data Results & Data Laboratory Results . Diagnostic Findings . PG Care Time/CCT Total # of Minutes Spent Total Time Spent with Patient: Total time spent is greater than 50% in coordination of care (as documented) at patient's floor/unit and/or counseling patient: Coding Level of Care Code 49050 Post Operative Follow-Up
--- NOTE | 2024-03-18 07:40 | Discharge Summary ---
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 Lateral interbody cage fusion with instrumentation on March 16. Principal Diagnosis Same as "Discharge Diagnosis" noted below under Discharge Instructions. Discharge Exam . Discharge Data Consultations 03/16/24 12:05 Consult Hospitalist Routine Procedures Performed Operation Date: 03/16/24 07:15 Actual Procedures p L4-L5 Lateral Lumbar Interbody Fusion with Interbody Cage and Posterior Instrumentation, with Spinal Cord Monitoring - oMe Ojeda MD Ordered Studies 03/16/24 07:15 FL lumbar spine 2-3V Routine Hospital Course (1) Spondylolysis of lumbar region: L4-5 lumbar fusion. (2) Spondylolisthesis of lumbar region: (3) Foraminal stenosis of lumbar region: PG Care Time/CCT Total # of Minutes Spent Total Time Spent with Patient: Total time spent is greater than 50% in coordination of care (as documented) at patient's floor/unit and/or counseling patient: Discharge Plan Discharge Items Patient Disposition: Home - Self-Care Reason For Visit: Spondylolisthesis at L4-L5 Level, Spondylolysis of Discharge Diagnosis: Same as above. Activity: As commented below Lifting: No more than 10 pounds Bathing: Keep incision dry and May shower/bathe in 3 days Exercise/Sports: Wait until after follow-up appointment Weightbearing: Full weightbearing Non-emergency contact: Surgeon Call non-emergency contact if: your pain is worsening Follow-up/Referrals: Enmanuel Escobar MD [Primary Care Provider] - Diet: Regular Addtl Attending Provider Instructions: Incisional care discussed, prescription to be sent through ambulatory chart. Pending Studies at Discharge: No Stand-Alone Forms: [employer], Smoking Cessation Medications and DC Order Prescriptions: Continued multivitamin Tablet 1 tab PO QAM albuterol sulfate 90 mcg/actuation Hfa Aerosol Inhaler 2 puff INHALATION QID PRN (Reason: sob) fluticasone propionate 50 mcg/actuation [place],Suspension 1 spray INTRANASAL DAILY PRN (Reason: Allergy Symptoms) Rx Instructions: administer into each nostril fluticasone propionate 110 mcg/actuation Hfa Aerosol Inhaler 2 puff INHALATION BID PRN (Reason: sob) azelastine-fluticasone 137-50 mcg/spray [place],Non-Aerosol 1 spray INTRANASAL BID PRN (Reason: Congestion) Rx Instructions: administer into each nostril magnesium oxide 400 mg magnesium Tablet 400 mg PO DAILY Wegovy 1 mg/0.5 mL Pen Injector 1 mg SUBCUT Q7D Patient Comments: mondays Held meloxicam 7.5 mg tablet 7.5 - 15 mg PO DAILY MDD 2 pills Qty: 30 1RF Hold Instructions: Resume on 05/18/24. Rx Instructions: With meals if possible. No Action oxycodone-acetaminophen 5-325 mg tablet 1 tab PO Q6H Qty: 30 0RF Discharge Orders: Discharge Order (Routine); Ordered 03/18/24 Ordered By: Moe Daniel/Other Patient Handouts: Lumbar Fusion Dc Admission Data Admit Date/Time: 03/16/24 12:05 Attending Provider: Moe Ojeda Admit Provider: Moe Ojeda Primary Care Provider: Enmanuel Escobar Other Providers: Daniel Marie Other Interventions: Discharge Summary Assessment (RN) Last Done: 03/18/24 11:38
[2024-03-18 11:40] VITALS: BP 102/67; PULSE 83
--- NOTE | 2024-03-18 16:51 | Operative Report ---
PG Post Operative Report Pre & Post Diagnosis Operation Date: 03/16/24 07:15 Pre-Op Diagnosis: Spondylolisthesis at L4-L5 Post-Op Diagnosis: Spondylolisthesis at L4-L5 I identified the patient and participated in the time-out.: Yes Procedure Operation Date: 03/16/24 07:15 Actual Procedures p L4-L5 Lateral Lumbar Interbody Fusion with Interbody Cage and Posterior Instrumentation, with Spinal Cord Monitoring - Moe Ojeda MD Surgeon Moe Ojeda MD [employer]ist none Estimated Blood Loss 30 Findings Consistent with Post-Op Diagnosis Specimens None Description of Procedure 1. Left L4-5 lateral interbody arthrodesis. (16724) 2. Insertion of intervertebral cage, NuVasive modulus XL 8 x 18 x 55 mm 10 degrees lordotic. (46159) 3. Posterior nonsegmental instrumentation, NuVasive reline. (52549) Patient was taken the operating room and after adequate anesthesia was carefully positioned in the right lateral decubitus position, left side. Once in that position and then moved ahead with obtaining fluoroscopic images and securing the patient to the operating room table in the standard fashion for a left-sided approach to the L4-5 level. Once doing so, I was able to flynn the area for the incision followed by prepping and draping. A transverse incision was made over the left iliac crest, advanced down through the subcutaneous tissues and through the tissues to was able to enter the retroperitoneal region right carefully advanced the abdominal contents anteriorly was able to palpate the psoas. I then inserted the initial dilator from the NuVasive set advanced down to the lateral aspect of the L4-5 disc space, monitoring was used to confirm the location along with fluoroscopy relative to any neurologic structures, the guidewire was set. This was then advanced by the additional dilators followed by the access apparatus. Additional imaging was performed to make adjustments for proper approach to the L4-5 level, and this was secured with a jessika after us visually inspecting the region and also using the monitoring probe. The lateral annulus was then incised followed by then removal of disc material from the disc space using a combination of instruments. Care was taken to remove the disc material and also cartilage from the endplates. Once this was completed, I went through trials selecting the size cage as noted which appeared to fit the interspace well and provide reduction of the spondylolisthesis. Fusion materials were then placed within the disc space and, the access apparatus was removed final inspection revealed no issues, and I then placed vancomycin powder and closed the operative site with 0 Vicryl sutures followed by 2-0 Vicryl sutures and mary for the skin. The patient was repositioned onto the Alfredo frame, preprepped with been performed beginning of the procedure, I brought in fluoroscopy and marked for the area of the incisions posteriorly and the side of the midline for the approach. Prep and drape was performed, began the procedure with the 2 lateral incisions followed by insertion of the Jamshidi needle which was inserted utilizing fluoroscopy and monitoring into L5 bilaterally. Guidewires were then set followed by then removal of the Jamshidi needles, they were then reinserted at the L4 level in a similar fashion with no issues. Guidewires 1 set were utilized to guide the tap followed by insertion of 6.5 millimeter screws, 45 mm in length, all with greater than 20 monitoring and proper position on fluoroscopy. Rods were then inserted, I was able to torque them to proper position inferiorly and then used this as an additional reduction tool obtaining what close to complete reduction of the spondylolisthesis. Final images were obtained, the operative sites were irrigated followed by then placement vancomycin powder, local anesthetic, 0 Vicryl sutures to the deeper fascial layer, 2-0 Vicryl sutures followed by mary to the skin. Sterile dressing was applied, the patient was taken recovery room satisfactory condition. I attest to the content of the Intraoperative Record and any orders documented therein. Any exceptions are noted below.
== END 2024-03-18 12:07 | disposition home or self-care (01) ==
LOC: ASU 05:49 → 3E 05:49